=== PATIENT | female | born 1950 | race Caucasian/White ===

== ENCOUNTER 2021-10-01 10:40 | Inpatient (IN) ==
[2021-09-26 17:26] LABS: Basophils # (Auto) 0.07 K/mcL (0.00-0.30); Basophils % (Auto) 0.8 % (0.0-2.0); Eosinophils % (Auto) 5.5 % (0.0-7.0); Hematocrit 41.2 % (34.1-44.9); Hemoglobin 12.9 g/dL (11.2-15.7); Lymphocytes # (Auto) 2.47 K/mcL (1.50-4.80); Mean Corpuscular HGB Conc 31.3 g/dL (31.0-36.0); Mean Platelet Volume 11.7 fL (7.4-10.4); Monocytes # (Auto) 0.58 K/mcL (0.10-0.90); Monocytes % (Auto) 6.3 % (1.0-12.0); Neutrophils % (Auto) 60.4 % (38.0-78.0); Platelet Count 261 K/mcL (140-440); RBC 4.29 M/mcL (3.59-5.38); Red Cell Distribution Width 12.9 % (11.5-14.5); WBC 9.2 K/mcL (4.5-11.0)
[2021-09-26 17:40] LABS: Estimated Average Glucose(eAG) 180 mg/dL; Hemoglobin A1C 7.9 % Hgb (4.0-6.0)
[2021-09-26 17:45] LABS: INR 0.9 (0.9-1.1); Prothrombin Time 12.8 sec (11.9-14.5)
[2021-09-26 18:15] LABS: Appearance,Urine TURBID (Clear); Bacteria,Urine FEW /hpf (0); Bilirubin,Urine Negative (Negative); Color,Urine AMBER; Culture Indicated,Urine yes; Glucose,Urine (UA) Negative (Negative); Ketones,Urine Negative (Negative); Leukocyte Esterase,Urine 250 /uL (Negative); Nitrate,Urine Negative (Negative); Protein,Urine 100 mg/dL (Negative); Specific Gravity,Urine 1.029 (1.000-1.035); Urine Blood 0.03 mg/dL (Negative); Urine Hyaline Cast 9 /lph (0-2); Urine RBC 59 /hpf (0-3); Urine Squamous Epithelial Cell 1 /hpf (0-4); Urine WBC > 182 /hpf (0-4); Urobilinogen,Urine Negative
[2021-09-26 18:58] LABS: ALT/SGPT 41 U/L (<40); AST/SGOT 41 U/L (<32); Albumin 4.6 gm/dL (3.2-5.2); Albumin/Globulin Ratio 1.5 (1.0-2.3); Alkaline Phosphatase 85 U/L (39-117); Bilirubin,Total 0.2 mg/dL (0.1-1.0); Blood Urea Nitrogen 29 mg/dL (8-23); Calcium 9.2 mg/dL (8.6-10.4); Carbon Dioxide 23 mmol/L (22-30); Chloride 102 mmol/L (96-108); Glomerular Filtration Rate 42; Glucose 123 mg/dL (70-105)
--- NOTE | 2021-09-27 16:49 | EKG ---
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
[~2021-10-01 10:40] MED LIST: GABAPENTIN 400 MG CAPSULE PO SCH; ceFAZolin 2 GM in DEXTROSE 5% IN WATER 50 ML IV SCH; oxyCODONE 10 MG TAB.ER.12H PO SCH
[2021-10-01] MEDS ORDERED: PHENYLephrine 1 MG/10 ML SYRINGE (ANEST) ONE (16:28)
[2021-10-01] MEDS ORDERED: PROPOFOL 200 MG/20 ML VIAL IV ONE (16:28)
[2021-10-01] MEDS ORDERED: KETAMINE 50 MG/ML Syringe (ANEST) IV ONE (16:28)
[2021-10-01] MEDS ORDERED: ONDANSETRON 4 MG/2 ML VIAL ONE (16:28)
[2021-10-01] MEDS ORDERED: TRANEXAMIC ACID 1,000 MG/10 ML VIAL ONE ×2 (16:28→18:45)
[2021-10-01] MEDS ORDERED: VASOPRESSIN 20 UNIT/ML VIAL ONE (16:28)
[2021-10-01] MEDS ORDERED: ePHEDrine 50 MG/5 ML SYRINGE (ANEST) IV ONE (16:28)
[2021-10-01] MEDS ORDERED: LIDOCAINE HCL/PF 100 MG/5 ML SYRINGE IV ONE (16:28)
[2021-10-01] MEDS ORDERED: DEXAMETHASONE 10 MG/ML VIAL ONE (16:28)
[2021-10-01] MEDS ORDERED: GLYCOPYRROLATE 0.2 MG/ML VIAL IV ONE (16:28)
[2021-10-01] MEDS ORDERED: MAGNESIUM SULFATE 2 GM/50 ML BAG IV ONE (16:28)
[2021-10-01] MEDS ORDERED: ROPIVACAINE HCL/PF 20 ML VIAL IJ ONE (16:28)
[2021-10-01] MEDS ORDERED: ACETAMINOPHEN 1,000 MG/100 ML BAG IV ONE (17:44)
[2021-10-01] MEDS ORDERED: IPRATROPIUM/ALBUTEROL 3 ML AMPUL.NEB NEB PRN (17:44)
[2021-10-01] MEDS ORDERED: ePHEDrine 50 MG/ML AMPUL IV PRN (17:44)
[2021-10-01] MEDS ORDERED: fentaNYL 100 MCG/2 ML VIAL IV PRN (17:44)
[2021-10-01] MEDS ORDERED: METHOCARBAMOL 1,000 MG/10 ML VIAL IV PRN (17:44)
[2021-10-01] MEDS ORDERED: ONDANSETRON 4 MG/2 ML VIAL IV PRN ×2 (17:44→17:59)
[2021-10-01] MEDS ORDERED: LACTATED RINGERS 1,000 ML IV SCH (17:45)
[2021-10-01] MEDS ORDERED: POLYETHYLENE GLYCOL 3350 17 GM PACKET PO PRN (17:59)
[2021-10-01] MEDS ORDERED: DEXTROSE 31 GM ORAL.SUSP PO PRN (17:59)
[2021-10-01] MEDS ORDERED: BISACODYL 10 MG SUPP.RECT PR PRN (17:59)
[2021-10-01] MEDS ORDERED: TRANEXAMIC ACID 1,000 MG/10 ML VIAL IV ONE (17:59)
[2021-10-01] MEDS ORDERED: MAGNESIUM HYDROXIDE 30 ML ORAL.SUSP PO PRN (17:59)
[2021-10-01] MEDS ORDERED: DEXTROSE 50% 50 ML VIAL IV PRN (17:59)
[2021-10-01] MEDS ORDERED: FLEETS ADULT ENEMA PR PRN (17:59)
[2021-10-01] MEDS ORDERED: BENZOCAINE/MENTHOL 1 LOZENGE PO PRN (17:59)
[2021-10-01] MEDS ORDERED: KETOROLAC 15 MG/ML VIAL IV PRN (17:59)
[2021-10-01] MEDS ORDERED: HYDROmorphone 1 MG/ML SYRINGE IV PRN (17:59)
[2021-10-01] MEDS ORDERED: 0.9 % SODIUM CHLORIDE 1,000 ML IV SCH (18:00)
--- NOTE | 2021-10-01 18:00 | Brief Operative Note ---
Brief Operative Note Date of procedure: 10/01/21 Pre-op diagnosis: Right hip severe osteoarthritis Post-op diagnosis: same Procedure: Right robotic assisted total hip arthroplasty Grafts/Implants: Yes ([place] Accolade size 3 127 deg femoral stem, +7.5 36 delta head, 48 cup, ) Anesthesia: spinal and GLMA Findings: severe arthritis Complications: none Surgeon: Missael Saucedo Furnace Brazer: Klever Webb Estimated blood loss (cc): 200 Specimens Removed/Pathology: none sent Condition: stable Disposition: PACU
--- NOTE | 2021-10-01 18:57 | XRay Report ---
INDICATION: Post-op Total Hip TECHNIQUE: AP pelvis. AP and crosstable lateral right hip COMPARISON: None. FINDINGS: Status post right total hip arthroplasty. Normal anatomic alignment demonstrated. Pelvis is negative. No fracture. No lytic lesion. There is degenerative joint disease in the left hip. IMPRESSION: Status post right total hip arthroplasty. Interpreted and Authenticated by: Nguyễn Lopez 10/01/21
[2021-10-01] MEDS ORDERED: BISMUTH SUBSALICYLATE 15 ML ORAL.SUSP PO PRN (19:32)
[2021-10-01] MEDS: 0.9 % SODIUM CHLORIDE 10 ML SYRINGE IV SCH ×2 (20:03→21:45)
[2021-10-01] MEDS ORDERED: SENNOSIDES 1 TABLET PO SCH (21:00)
[2021-10-01] MEDS ORDERED: ASPIRIN 325 MG ENTERIC COATED TABLET PO SCH (21:00)
[2021-10-01] MEDS ORDERED: SIMVASTATIN 10 MG TABLET PO SCH (21:00)
[2021-10-01] MEDS ORDERED: MELATONIN 3 MG TABLET PO SCH (21:00)
[2021-10-01] MEDS ORDERED: NORTRIPTYLINE 25 MG CAPSULE PO SCH (21:00)
[2021-10-01] MEDS ORDERED: CARBIDOPA/LEVODOPA 25/100 TABLET PO SCH (21:00)
[2021-10-01] MEDS: LITHIUM CARBONATE 150 MG CAPSULE PO SCH (21:24)
[2021-10-01] MEDS: QUEtiapine 100 MG TABLET PO SCH (21:25)
[2021-10-01] MEDS: DOCUSATE SODIUM 100 MG CAPSULE PO SCH (21:29)
[2021-10-01] MEDS: GABAPENTIN 400 MG CAPSULE PO SCH (21:29)
[2021-10-01] MEDS: INSULIN LISPRO 1 UNIT/0.01 ML UNIT SQ SCH (21:44)
[2021-10-01] MEDS: oxyCODONE/APAP 5/325MG TABLET PO PRN (22:19)
[2021-10-02] MEDS: ceFAZolin 1 GM VIAL IV SCH ×2 (02:15→07:32)
[2021-10-02] MEDS: oxyCODONE/APAP 5/325MG TABLET PO PRN ×3 (02:31→10:10)
[2021-10-02] MEDS: 0.9 % SODIUM CHLORIDE 10 ML SYRINGE IV SCH (06:09)
[2021-10-02] MEDS: INSULIN LISPRO 1 UNIT/0.01 ML UNIT SQ SCH (07:33)
--- NOTE | 2021-10-02 07:47 | Discharge Summary ---
Discharge Provider Provider Patient information: Note initiated : 10/02/21 at 7:46 am Service Date, if different from initiated Date: [] Patient: Suzanna Garza 71 y/o F admitted on 10/01/21 for Right Total Hip Arthroplasty Aureliano. Chief Complaint: [] Date of admission: 10/01/21 18:57 Discharge date: 10/02/21 Primary care physician: Davis Pickard COURSE Hospital Course Hospital course: Pt was admitted for a R CESILIA. Pt underwent the procedure on the day of admission and discharged to home post-op day 1. ASA for DVT prophylaxis. f/u in 2 weeks. Discharge diagnosis: R hip OA Time Spent with Patient Time attestation: Total time spent providing and/or coordinating discharge services: Physical Examination Narrative Exam Narrative: Bandages c/d/i nvi-distal Exam Clean and dry: Yes Weight bearing status: as tolerated Discharge Instructions - CESILIA Patient Instructions Total Hip Protocol: Follow activity instructions as provided by Physical Therapy. Discharge Plan Patient/Caregiver Discharge Instructions Activity: as per physical therapy and increase activity as tolerated Prescriptions: New hydrocodone-acetaminophen 10-325 mg tablet 1 - 2 tab PO Q4-6HP PRN (Reason: pain) Qty: 60 0RF aspirin 325 mg capsule 325 mg PO QDAY Qty: 7 0RF Continued metformin 500 mg tablet 500 mg PO QDAY 0RF clopidogrel 75 MG tablet 75 mg PO DAILY Qty: 14 0RF simvastatin 10 MG tablet 10 mg PO HS 0RF multivitamin Tablet 1 tab PO QDAY 0RF ibuprofen 200 mg Capsule 600 mg PO Q6H PRN (Reason: Pain) 0RF potassium chloride 10 mEq Tablet Extended Release 10 meq PO QDAY 0RF nortriptyline 25 mg Capsule 25 mg PO QHS 0RF furosemide 20 mg Tablet 20 mg PO QDAY 0RF metoprolol succinate 25 mg Tablet Extended Release 24 Hr 25 mg PO QDAY 0RF carbidopa-levodopa 25-100 mg Tablet 2 tab PO QHS 0RF bismuth subsalicylate 525 mg/15 mL Suspension 1,050 mg PO PRN PRN (Reason: Gastric Reflux) 0RF Rx Instructions: do not exceed 8 doses in a 24 hour period cholecalciferol (vitamin D3) [Vitamin D3] 25 mcg (1,000 unit) Capsule 25 mcg PO QDAY 0RF melatonin 10 mg Tablet 10 mg PO HS 0RF lithium carbonate 300 mg Capsule 600 mg PO BID 0RF quetiapine 25 mg tablet 100 mg PO BID 0RF Label Comments: also one tablet at night gabapentin 600 mg tablet 1,200 mg PO BID 0RF Label Comments: then takes 2 more tabs PRN at HS Discontinued ferrous sulfate 325 mg (65 mg iron) Tablet 325 mg PO BID 0RF Other Ambulatory Orders: Physical Therapy at Discharge - CESILIA (Routine) Location: None Selected Ordered By: Klever Webb Walker (ONCE) Location: None Selected Ordered By: Klever Webb Follow Up Plan Follow up with: Klever Webb PA-C [Physician [employer] [facility]] - Patient Disposition: Home, Self-Care Rehab Potential: Good Overall status at discharge: patient is progressing back to baseline Discharge Orders: Discharge Order (Routine); Ordered 10/02/21 Ordered By: Klever Webb Pending Pending Pending: Resuscitation Status Resuscitate (Full Code) Diet Consistent Carbohydrate Diet Start WedOct 01 1802 Aspirin (Aspirin 325 Mg Enteric Coated Tablet) 81 mg PO BID [facility] Last Admin: 10/01/21 21:28 Dose: Not Given Documented by: LEXII Carbidopa/Levodopa (Carbidopa/Levodopa 25/100 Tablet) 2 tab PO QHS [facility] Last Admin: 10/01/21 21:24 Dose: 2 tab Documented by: LEXII Cefazolin Sodium (Cefazolin 1 Gm Vial) 2 gm IV Q8H [facility] Stop: 10/02/21 08:01 Last Admin: 10/02/21 07:32 Dose: 2 gm Documented by: [email or web address] Admin: 10/02/21 02:15 Dose: 2 gm Documented by: LEXII Diagnostic Test (Pha) (Accu-Chek 1 Each Strip) 1 each FS ACHS [facility] Last Admin: 10/02/21 07:32 Dose: 1 each Documented by: [email or web address] Admin: 10/01/21 21:36 Dose: 1 each Documented by: BRYNNSCHERRY Docusate Sodium (Docusate Sodium 100 Mg Capsule) 100 mg PO BID [facility] Last Admin: 10/01/21 21:29 Dose: Not Given Documented by: BRYNNSCHERRY Gabapentin (Gabapentin 400 Mg Capsule) 1,200 mg PO BID [facility] Last Admin: 10/01/21 21:29 Dose: Not Given Documented by: LEXII Insulin Human Lispro (Insulin Lispro 1 Unit/0.01 Ml Unit) 0 unit SQ ACHS [facility]; Protocol Last Admin: 10/02/21 07:33 Dose: 4 unit Documented by: [email or web address] Admin: 10/01/21 21:44 Dose: 6 unit Documented by: LEXII [place] Carbonate ([place] Carbonate 150 Mg Capsule) 600 mg PO BID [facility] Last Admin: 10/01/21 21:24 Dose: 600 mg Documented by: LEXII Melatonin (Melatonin 3 Mg Tablet) 9 mg PO [facility] Last Admin: 10/01/21 21:24 Dose: 9 mg Documented by: LEXII Nortriptyline HCl (Nortriptyline 25 Mg Capsule) [facility] Last Admin: 10/01/21 21:24 Dose: 25 mg Documented by: LEXII Oxycodone/Acetaminophen (Oxycodone/Apap 5/325mg Tablet) 1 - 2 tab PO Q4HP PRN; Protocol PRN Reason: Per Pain Protocol Last Admin: 10/02/21 06:09 Dose: 1 tab Documented by: Admin: 10/02/21 02:31 Dose: 1 tab Documented by: Admin: 10/01/21 22:19 Dose: 1 tab Documented by: LEXII Quetiapine Fumarate (Quetiapine 100 Mg Tablet) 100 mg PO BID [facility] Last Admin: 10/01/21 21:25 Dose: 100 mg Documented by: LEXII Senna (Sennosides 1 Tablet) 2 tab PO [facility] Last Admin: 10/01/21 21:29 Dose: Not Given Documented by: LEXII Simvastatin (Simvastatin 10 Mg Tablet) 10 mg PO [facility] Last Admin: 10/01/21 21:24 Dose: 10 mg Documented by: LEXII Sodium Chloride (0.9 % Sodium Chloride 10 Ml Syringe) 10 ml IV Q8 [facility] Last Admin: 10/02/21 06:09 Dose: 10 ml Documented by: Admin: 10/01/21 21:45 Dose: 10 ml Documented by: LEXII Shift Summary 10/02/21 05:15 Shift Summary by Jose Luis De Souza Pt A/Ox4. Returned from surgery 1900 last night. Tolerating PO well. x1 tab of Percocet administered x2 for 4/10 pain, last administered @0230. Pt ambulated x1 this AM. Expected to D/c home today. VSS on RA. Will update at bedside Initialized on 10/02/21 05:15 - END OF NOTE
[2021-10-02] MEDS ORDERED: ASPIRIN 325 MG ENTERIC COATED TABLET PO ONE (08:00)
--- NOTE | 2021-10-02 08:49 | Operative Note ---
DATE OF OPERATION: 10/01/2021 PREOPERATIVE DIAGNOSIS: Right hip severe osteoarthritis. POSTOPERATIVE DIAGNOSIS: Right hip severe osteoarthritis. PROCEDURE PERFORMED: Right robotic-assisted direct anterior total hip arthroplasty placing a Devyn Accolade II 127-degree size 3 femoral stem; a +7.5, 36 mm delta ceramic head ball on a 48 Trident II cup with a neutral X3 polyethylene insert. SURGEON: Missael Saucedo MD SENIOR BI ARCHITECT: Luis E Webb PA-C. This providers expertise and technical skill were required throughout the case. The SYL assisted with preoperative coordination, intraoperative retraction, wound closure, and dressing and splint application, as well as postoperative documentation and care coordination. ANESTHESIA: Spinal plus general. DRAINS: None. SPECIMEN: Femoral head, which was discarded ESTIMATED BLOOD LOSS: 200 mL. COMPLICATIONS: None. POSTOPERATIVE CONDITION: Stable. INDICATIONS FOR SURGERY: This is a 71-year-old female who has had longstanding, progressive worsening, severe right hip pain. Radiographs showed severe mgld-lw-lpix osteoarthritis. FINDINGS AT SURGERY: Severe hlgm-jc-jvcf osteoarthritis with very large osteophytes. Post implantation showed good component position with equalization of leg length and offset compared to the nonoperative side. PROCEDURE IN DETAIL: The patient was seen preoperatively and informed consent had been obtained after discussion of risks and benefits of surgery. Risks including, but not limited to, bleeding, possibly requiring transfusion; infection, possibly requiring implant removal and prolonged IV antibiotics; injury to nerves, blood vessels, and other surrounding structures, at particular risk the lateral femoral cutaneous nerve resulting in lateral thigh numbness; anesthetic risks; incomplete or no resolution of symptoms; leg length discrepancy with likely leg lengthening; dislocation; fracture; DVT and pulmonary embolus risks; and the possibility of needing further revision joint surgery. The patient understood these risks and wished to proceed. The correct operative site was marked in preoperative holding. The patient received spinal anesthesia. The patient was then taken to the operating room, and general anesthesia induced. The patient was carefully positioned on the [place] table and the operative and nonoperative hips were prepped and draped in normal sterile fashion. Timeout was performed verifying patient name, operative site, and plan. On the nonoperative side, all skin surfaces were covered with Ioban. The nonoperative iliac crest was then palpated and two stab incisions made over it. We then placed the guide in the two holes and then drilled and placed the two pins into the iliac crest. Once this was completed, we then placed a stab incision in between these two and a third pin was passed using the guide with the central sleeve. This sleeve was carefully pushed all the way down to bone and then the guide was tightened against all three pins. We had also placed an EKG pad on the tibial tubercle that could be palpated through the drapes of the operative side. We then used the blue probe to do our check of the guide and the tibial tubercle. We then proceeded on the operative side with a standard anterior approach incision with a scalpel through skin and subcutaneous tissue. We did use a scalpel through skin and subcutaneous tissue. Hemostasis was obtained with Bovie cautery. We continued careful blunt dissection down onto the tensor fascia and then this was undermined circumferentially. IrriSept was irrigated and then the ring retractor placed. The tensor fascia was incised carefully not to injure the lateral femoral cutaneous nerve. Careful blunt dissection was then taken medial to the muscle belly. Blunt Cobra retractors were placed on the superior and inferior neck and then circumflex vessels were coagulated and cut and vastus fascia was split distally. A T-shaped capsular incision was made along the intertrochanteric line and then perpendicular to this up the femoral neck to the acetabular rim and then the triangles of the capsule were excised with Bovie. Retractors were placed intracapsular and capsule release was taken down towards the lesser trochanter and out towards greater. A corkscrew was placed in the femoral head and then we used the blue probe to make our starting point in the saddle on the superior neck and then measured to the medial neck according to our preoperative planning for our neck cut with the [employer] (now [employer]) software. We then made a Bovie curtis and made our femoral neck cut with oscillating tip saw. The femoral head was removed and the acetabulum was exposed. The labrum was excised circumferentially. Bone wax was placed on the cut surface to help with bleeding. We also used Bovie to remove soft tissue from the floor of the acetabulum. Once we had good exposure of the acetabulum, we then proceeded with our blue probe to do our mapping of the acetabulum. Once this was completed, we then popped the bubbles with the probe verifying good registration. Once registration was complete, I then irrigated the acetabulum with IrriSept and then the reamer was placed into the acetabulum and the reamer was then fastened into the robotic arm. Using the robotic assistance, we then reamed the acetabulum until all the green had been removed in a one-step ream technique. The reamer was then removed. The appropriate acetabular cup was then opened. We irrigated with IrriSept once more, after a minute I then pulse lavaged copiously with saline. The cup was then positioned into the acetabulum and then again attached to the arm, and a mallet was then used to impact the cup until it seated within 1 mm of fully seating according to the robot. We then removed the impactor arm. A center hole cover was placed and inspection was done for any osteophytes with a curved osteotome was used to remove them. The liner was then opened and carefully aligned and impacted. We used a tonsil clamp to carefully verify that this was fully seated circumferentially. Traction was then released from the leg, was externally rotated, and capsule was released around the medial and posterior neck and then with the traction off the leg, it was extended and adducted. We released the capsule out towards the greater trochanter and once we had adequate proximal femur exposure a box osteotome was used to gain canal entry. We did view our neck cut view on the Aureliano to start our proximal version. An awl was then used to identify canal trajectory. [place] and rasp were used to lateralize. We then began sequentially broaching up to the size templated which seated right about our neck cut. I did use a calcar planer to ensure bone resection was flush and then the preplanned neck trial and head ball were placed and the hip was reduced. We then checked with our blue probe our leg lengths. We did place a femoral checkpoint just prior to our neck cut osteotomy. We placed a probe in the femoral checkpoint and then also the tibial tubercle checkpoint. This had our limb positioned very similar to the nonoperative side as preoperatively planned. So, we went ahead and redislocated. Trial stem was removed. Definitive stem was opened. We irrigated the femoral canal with IrriSept, after waiting a minute, we pulse lavaged copiously with saline. The stem was then impacted and it seated at the appropriate level, so the head ball was also opened. The stem was carefully cleaned and dried and the head ball was impacted. The hip was reduced and a final verification was done again with the blue probe verifying again our preoperative plan. We then removed the femoral checkpoint. We irrigated the joint with IrriSept, after a minute, we pulse lavaged copiously with saline. The tensor fascia was then closed with two running #1 Vicryls, one running proximal and one running distal. The ring retractor was removed. We irrigated with more IrriSept, after a minute more pulse lavage, and then fat was tacked to fascia with Vicryl and then 2-0 Monocryl was used for subcutaneous and en for skin closure. A sterile dressing was applied. The patient was then awakened and transferred to the [facility] and to the recovery room in stable condition. BJB:cait Job ID: [id number] Doc ID: [id number] Missael Saucedo MD
[2021-10-02] MEDS ORDERED: VITAMIN D3 25 MCG TABLET PO SCH (09:00)
[2021-10-02] MEDS ORDERED: metFORMIN 500 MG TABLET PO SCH (09:00)
[2021-10-02] MEDS ORDERED: POTASSIUM CHLORIDE 10 MEQ TABLET PO SCH (09:00)
[2021-10-02] MEDS ORDERED: MULTIVIT,THER IRON,CA,FA & MIN 1 TABLET PO SCH (09:00)
[2021-10-02] MEDS ORDERED: METOPROLOL SUCCINATE 25 MG TAB.XL.24H PO SCH (09:00)
[2021-10-02] MEDS ORDERED: FUROSEMIDE 20 MG TABLET PO SCH (09:00)
[2021-10-02] MEDS: QUEtiapine 100 MG TABLET PO SCH (10:11)
[2021-10-02] MEDS: LITHIUM CARBONATE 150 MG CAPSULE PO SCH (10:11)
[2021-10-02] MEDS: GABAPENTIN 400 MG CAPSULE PO SCH (10:12)
[2021-10-02] MEDS: DOCUSATE SODIUM 100 MG CAPSULE PO SCH (10:12)
== END 2021-10-02 10:20 | disposition home or self-care (01) | DRG 470 ==
LOC: SUR 10:40 → MEDSUR 18:57
PROVIDERS: ADMIT Orthopaedic Surgery; ATTEND Orthopaedic Surgery

== ENCOUNTER 2021-10-03 16:00 | Inpatient (IN) ==
[2021-10-03] MEDS ORDERED: 0.9 % SODIUM CHLORIDE 1,000 ML IV ONE (16:30)
[2021-10-03] MEDS ORDERED: NALOXONE HCL 0.4 MG/ML VIAL IV ONE (16:37)
[2021-10-03 16:42] LABS: POC Blood Urea Nitrogen 28 mg/dL (6-20); POC CO2 25 mmol/L (22-30); POC Calcium, Ionized 1.18 mmEq/L (1.16-1.32); POC Chloride 102 mEq/L (96-108); POC Creatinine 1.2 mg/dL (0.6-1.2); POC Glucose, Random 137 mg/dL (70-105); POC Hematocrit 34 % (36-48); POC Potassium 4.5 mEql/L (3.3-5.1); POC Sodium 137 mEq/L (133-145)
[2021-10-03 17:13] LABS: Hematocrit 35.9 % (34.1-44.9); Hemoglobin 11.6 g/dL (11.2-15.7); Mean Cell Volume 98.4 fL (80.0-100.0); Mean Corpuscular HGB Conc 32.3 g/dL (31.0-36.0); Mean Platelet Volume 11.7 fL (7.4-10.4); Platelet Count 229 K/mcL (140-440); RBC 3.65 M/mcL (3.59-5.38); Red Cell Distribution Width 13.4 % (11.5-14.5); WBC 13.8 K/mcL (4.5-11.0)
--- NOTE | 2021-10-03 17:47 | Emergency Department Note ---
HPI <Amaya Cullen PA-C - Last Filed: 10/03/21 19:46> General Chief complaint: Weakness Stated complaint: weakness Time Seen by Provider: 10/03/21 16:07 Source: patient and EMS Mode of arrival: ambulatory History of Present Illness HPI Narrative: This is a 71-year-old female who is postop right robotic assisted hip replacement with Dr. Saucedo on 10/01/2021 who presents today with her for somnolence, weakness and inability to transfer, and increasing dyskinesia. The patient is on multiple antipsychotics for bipolar, including lithium carbonate and Seroquel. Her states that she also takes carbidopa levodopa, but cannot recall for what reason she is on this. She initially discharged home from the hospital and was tolerating ambulating and transferring without issue. She has become gradually weaker and more somnolent. Her states he only gave her one tab of 10 mg hydrocodone/t ylenol this morning for narcotic intake. Of note patient had a Klebsiella UTI diagnosed on 09/26/2021 for which she just started taking ciprofloxacin this morning. Related Data Home Medications Medication Instructions Recorded Confirmed gabapentin 600 mg tablet 1,200 mg PO BID tab 11/28/18 10/01/21 quetiapine 25 mg tablet 100 mg PO BID tab 11/28/18 10/01/21 simvastatin 10 mg tablet 10 mg PO HS 12/03/18 10/01/21 metformin 500 mg tablet 500 mg PO QDAY tab 09/20/21 10/01/21 bismuth subsalicylate 525 mg/15 mL 1,050 mg PO PRN PRN 09/26/21 10/01/21 oral suspension carbidopa 25 mg-levodopa 100 mg 2 tab PO QHS 09/26/21 10/01/21 tablet cholecalciferol (vitamin D3) 25 25 mcg PO QDAY 09/26/21 10/01/21 mcg (1,000 unit) capsule (Vitamin D3) furosemide 20 mg tablet 20 mg PO QDAY 09/26/21 10/01/21 ibuprofen 200 mg capsule 600 mg PO Q6H PRN 09/26/21 10/01/21 lithium carbonate 300 mg capsule 600 mg PO BID 09/26/21 10/01/21 melatonin 10 mg tablet 10 mg PO HS 09/26/21 10/01/21 metoprolol succinate 25 mg 25 mg PO QDAY 09/26/21 10/01/21 tablet,extended release 24 hr multivitamin 1 tab PO QDAY 09/26/21 10/01/21 nortriptyline 25 mg capsule 25 mg PO QHS 09/26/21 10/01/21 potassium chloride 10 mEq 10 meq PO QDAY 09/26/21 10/01/21 tablet,extended release Previous Rx's Medication Instructions Recorded clopidogrel 75 mg tablet 75 mg PO DAILY #14 tab 10/20/16 aspirin 325 mg capsule 325 mg PO QDAY #7 cap 10/02/21 hydrocodone 10 mg-acetaminophen 1 - 2 tab PO Q4-6HP PRN #60 tab 10/02/21 325 mg tablet Allergies Allergy/AdvReac Type Severity Reaction Status Date / Time codeine Allergy Mild Rash Verified 09/30/21 15:07 Sulfa (Sulfonamide Allergy Mild Rash Verified 09/30/21 15:07 Antibiotics) divalproex sodium AdvReac Intermediate Hallucinati Verified 09/30/21 15:07 [From Depakote] ng metoclopramide [From Reglan] AdvReac Intermediate Hallucinati Verified 09/30/21 15:07 ng Review of Systems <Amaya Cullen PA-C - Last Filed: 10/03/21 19:46> ROS ROS Narrative: Narrative: All systems ED: reviewed and negative except as stated. PFSH <Amaya Cullen PA-C - Last Filed: 10/03/21 19:46> Narrative Patient History Narrative: Narrative: Medical/Surgical/Family History All Active Problems (Updated 10/03/21 @ 19:30 by Amaya Cullen PA-C) Weakness (Acute) Self-care deficit (Acute) Ambulatory dysfunction (Acute) S/P total hip arthroplasty (Acute) Sciatica (Acute) Strain of lumbar region (Acute) Lower extremity edema (Acute) Congestive heart failure (Acute) Impaired swallowing associated with throat pain (Acute) Breath shortness (Acute) Edema, peripheral (Acute) Vaginitis (Acute) Intertrigo (Acute) Chronic anticoagulation (Chronic) Benzodiazepine (tranquilizer) overdose (Acute) Chronic insomnia (Acute) Abnormal resting ECG findings (Chronic) Obesity (Chronic) Coronary artery disease (Chronic) Bipolar disorder (Chronic) Old cerebrovascular accident without late effect (Chronic) Hypertension (Chronic) Hyperlipidemia (Chronic) Lumbar spinal stenosis (Chronic) GERD (gastroesophageal reflux disease) (Chronic) Recurrent falls (Chronic) Neuropathy (Chronic) Back pain (Chronic) Restless leg syndrome (Chronic) Insomnia (Chronic) Edema (Chronic) Arthritis (Chronic) Eczema (Chronic) Migraines (Chronic) Depression (Chronic) Urinary incontinence (Chronic) Anxiety disorder (Chronic) Dizziness (Chronic) Medical History (Updated 10/03/21 @ 19:30 by Amaya Cullen PA-C) Abnormal resting ECG findings inverted T waves precordial and inferior; strain pattern; LVH probable 2017, , 04-01-19 Altered mental status Anxiety disorder Arthritis Back pain chronic low back Bipolar disorder Buttock pain Chronic anticoagulation eliquis Coronary artery disease Cystitis Depression Dizziness DVT prophylaxis Eczema Edema Encounter for medication refill Fall GERD (gastroesophageal reflux disease) Hyperlipidemia Hypertension Insomnia Lumbar spinal stenosis Migraine Migraines Multiple contusions Neck pain, acute Neuropathy Obesity Old cerebrovascular accident without late effect Recurrent falls Recurrent UTI Restless leg syndrome Sinus problem TIA (transient ischemic attack) Urinary incontinence Urinary tract infection Surgical History (Updated 10/03/21 @ 19:30 by Amaya Cullen PA-C) History of breast surgery History of delivery History of shoulder surgery History of tonsillectomy S/P hysterectomy Family History Father Prostate tumor Rheumatoid arthritis Cancer Mother Heart attack Mitral valve regurgitation Hypertension Daughter Diabetes Sister Hypertension Other Stroke Social History Smoking Status: Former smoker Alcohol Intake Frequency: holiday/special occasion only Substance Use: does not use Exam <Amaya Cullen PA-C - Last Filed: 10/03/21 19:46> Narrative Narrative: General: AO x2 to self and location. NAD, somnolent but arousable. Very weak with twitching/jerking movements with initiation of movement. HEENT: PERRL, EOMI, normocephalic. Moist mucous membranes. Normal facies and normal dentition. Chest: Symmetric, no pain to palpation Respiratory: Crackles noted in the right lower lobe. No respiratory distress. Unlabored breathing. Heart: Regular rate and rhythm, no murmurs/clicks/rubs. Abdomen: Non-tender, Non distended, normal bowel tones. No organomegaly. Extremities: Warm and well perfused. No edema. DP 2+ bilaterally. No venous stasis. Right lower extremity with right hip incision dressing C/D/I. No significant hematoma formation. Postsurgical ecchymosis noted. Left hip incisi on with dressing C/D/I, no hematoma formation. Neuro: No focal deficits. Cranial nerves II-XII grossly normal. Skin: Warm dry, no rashes or lesions, no cyanosis. Psych: Somnolent but arousable Heme/Lymph: No abnormal bruising Course <Amaya Cullen PA-C - Last Filed: 10/03/21 19:46> Course Course Narrative: 71-year-old female presents for weakness, ambulatory dysfunction, and somnolence status post right robotic assisted hip replacement with Dr. Saucedo on 10/01/2021. Reevaluation(s) Reevaluation #1: Patient is a high fall risk and not a safe discharge home. I do have the clinical professor of social work reach out to skilled facilities, but these are not available tonight and likely not available over the weekends for admission. We will obtain basic lab work and plan for observation admission for placement if everything looks okay. Reevaluation #2: Patient was trialed on 0. 2 mg of Narcan to see if this improves her somnolence. She is slightly more alert on reexamination. CBC with mild leukocytosis of 13,800, probably stress response from surgery. UA is bland and culture is not indicated; however, in the setting of recent UTI this is sent for culture. Vital Signs Vital signs: Vital Signs Temperature 98 F 10/03/21 16:02 Pulse Rate 92 H 10/03/21 16:02 Respiratory Rate 16 10/03/21 16:02 Blood Pressure 123/65 10/03/21 16:02 Pulse Oximetry (%) 94 10/03/21 16:02 Temperature 97.4 F 10/04/21 06:52 Pulse Rate 89 10/04/21 06:52 Respiratory Rate 16 10/04/21 06:52 Blood Pressure 152/88 10/04/21 06:52 Pulse Oximetry (%) 96 10/04/21 06:52 MDM <Amaya Cullen PA-C - Last Filed: 10/03/21 19:46> MDM Narrative Medical decision making narrative: Postoperative weakness and self-care deficits Patient status post right robotic assisted total hip arthroplasty, POD #2 with postoperative weakness and self-care deficits and unsafe disposition to home. Laboratory values are essentially unremarkable. UA appears clear. Patient will require PT OT reevaluation for safe disposition. I discussed the case with the hospitalist who has agreed for admission, likely observation with reevaluation in the morning. Lab Data Result diagrams: 10/04/21 05:36 10/04/21 05:36 Labs: Lab Results 10/03/21 10/03/21 10/03/21 Range/Units 16:30 16:30 18:03 WBC 13.8 H (4.5-11.0) K/mcL RBC 3.65 (3.59-5.38) M/mcL Hgb 11.6 (11.2-15.7) g/dL Hct 35.9 (34.1-44.9) % POC Hct 34 L (36-48) % MCV 98.4 (80.0-100.0) fL MCH 31.8 (26.0-34.0) pg MCHC 32.3 (31.0-36.0) g/dL RDW 13.4 (11.5-14.5) % Plt Count 229 (140-440) K/mcL MPV 11.7 H (7.4-10.4) fL Seg Neutrophils % 81 H (38-78) % Band Neutrophils % 1 (0-10) % Lymphocytes % 14 L (15-49) % Monocytes % (Manual) 2 (1-12) % Eosinophils % (Manual) 2 (0-7) % Platelet Estimate Normal (Normal) RBC Morphology Normal (Normal) POC Sodium 137 (133-145) mEq/L Sodium (133-145) mmol/L POC Potassium 4.5 (3.3-5.1) mEql/L Potassium (3.3-5.1) mmol/L POC Chloride 102 (96-108) mEq/L Chloride (96-108) mmol/L Carbon Dioxide (22-30) mmol/L POC Total CO2 25 (22-30) mmol/L Anion Gap (8.0-16.0) POC BUN 28 H (6-20) mg/dL BUN (8-23) mg/dL Creatinine (0.6-1.1) mg/dL POC Creatinine 1.2 (0.6-1.2) mg/dL GFR Calculation Glucose (70-105) mg/dL POC Glucose 137 H (70-105) mg/dL Uric Acid (2.5-8.0) mg/dL Calcium (8.6-10.4) mg/dL POC WB Ioniz Calcium 1.18 (1.16-1.32) mmEq/L Phosphorus (2.5-4.5) mg/dL Magnesium (1.6-2.5) mg/dL Total Bilirubin (0.1-1.0) mg/dL Direct Bilirubin (0-0.3) mg/dL GGT (5-36) U/L AST (<32) U/L ALT (<40) U/L Alkaline Phosphatase (39-117) U/L Lactate Dehydrogenase (135-225) U/L Total Protein (5.9-8.4) gm/dL Albumin (3.2-5.2) gm/dL Globulin (2.2-3.7) gm/dL Albumin/Globulin Ratio (1.0-2.3) Triglycerides (<150) mg/dL Urine Color Yellow Urine Appearance Clear (Clear) Urine pH 6.0 (5.0-9.0) Ur Specific [place] 1.020 (1.000-1.035) Urine Protein Negative (Negative) mg/dL Urine Glucose (UA) Negative (Negative) mg/dL Urine Ketones 5 A (Negative) mg/dL Urine Occult Blood Negative (Negative) mg/dL Urine Nitrate Negative (Negative) Urine Bilirubin Negative (Negative) mg/dL Urine Urobilinogen Negative mg/dL Ur Leukocyte Esterase Negative (Negative) /uL Ur Culture Indicated? No 10/03/21 Range/Units 19:52 WBC (4.5-11.0) K/mcL RBC (3.59-5.38) M/mcL Hgb (11.2-15.7) g/dL Hct (34.1-44.9) % POC Hct (36-48) % MCV (80.0-100.0) fL MCH (26.0-34.0) pg MCHC (31.0-36.0) g/dL RDW (11.5-14.5) % Plt Count (140-440) K/mcL MPV (7.4-10.4) fL Seg Neutrophils % (38-78) % Band Neutrophils % (0-10) % Lymphocytes % (15-49) % Monocytes % (Manual) (1-12) % Eosinophils % (Manual) (0-7) % Platelet Estimate (Normal) RBC Morphology (Normal) POC Sodium (133-145) mEq/L Sodium 137 (133-145) mmol/L POC Potassium (3.3-5.1) mEql/L Potassium 4.7 (3.3-5.1) mmol/L POC Chloride (96-108) mEq/L Chloride 102 (96-108) mmol/L Carbon Dioxide 21 L (22-30) mmol/L POC Total CO2 (22-30) mmol/L Anion Gap 14.0 (8.0-16.0) POC BUN (6-20) mg/dL BUN 18 (8-23) mg/dL Creatinine 1.1 (0.6-1.1) mg/dL POC Creatinine (0.6-1.2) mg/dL GFR Calculation 51 Glucose 152 H (70-105) mg/dL POC Glucose (70-105) mg/dL Uric Acid 7.9 (2.5-8.0) mg/dL Calcium 9.0 (8.6-10.4) mg/dL POC WB Ioniz Calcium (1.16-1.32) mmEq/L Phosphorus 2.7 (2.5-4.5) mg/dL Magnesium 2.4 (1.6-2.5) mg/dL Total Bilirubin 0.3 (0.1-1.0) mg/dL Direct Bilirubin < 0.2 (0-0.3) mg/dL GGT 25 (5-36) U/L AST 30 (<32) U/L ALT 8 (<40) U/L Alkaline Phosphatase 67 (39-117) U/L Lactate Dehydrogenase 203 (135-225) U/L Total Protein 6.8 (5.9-8.4) gm/dL Albumin 3.9 (3.2-5.2) gm/dL Globulin 2.9 (2.2-3.7) gm/dL Albumin/Globulin Ratio 1.3 (1.0-2.3) Triglycerides 138 (<150) mg/dL Urine Color Urine Appearance (Clear) Urine pH (5.0-9.0) Ur Specific [place] (1.000-1.035) Urine Protein (Negative) mg/dL Urine Glucose (UA) (Negative) mg/dL Urine Ketones (Negative) mg/dL Urine Occult Blood (Negative) mg/dL Urine Nitrate (Negative) Urine Bilirubin (Negative) mg/dL Urine Urobilinogen mg/dL Ur Leukocyte Esterase (Negative) /uL Ur Culture Indicated? ED POC Tests ED POC Tests: BOBBI - SARS Antigen Negative Discharge Plan Patient/Caregiver Discharge Instructions Pt seen by ATTORNEY LAWYER/PA only: Yes Clinical Impression: Weakness, Self-care deficit, Ambulatory dysfunction, S/P total hip arthroplasty Patient Disposition: Xfer As Outpt/Obs ([facility]) Condition: Fair Discharge Date/Time: 10/03/21 21:25
[2021-10-03 18:08] LABS: Band Neutrophils % 1 % (0-10); Eosinophils % (Manual) 2 % (0-7); Lymphocytes % 14 % (15-49); Monocytes % (Manual) 2 % (1-12); Platelet Estimate NORMAL (Normal); RBC Morphology NORMAL (Normal); Segmented Neutrophils % 81 % (38-78)
[2021-10-03 19:05] LABS: Appearance,Urine CLEAR (Clear); Bilirubin,Urine Negative (Negative); Color,Urine YELLOW; Culture Indicated,Urine No; Glucose,Urine (UA) Negative (Negative); Ketones,Urine 5 mg/dL (Negative); Leukocyte Esterase,Urine Negative /uL (Negative); Nitrate,Urine Negative (Negative); Protein,Urine Negative (Negative); Urine Blood Negative (Negative); Urobilinogen,Urine Negative
--- NOTE | 2021-10-03 20:06 | Internal Med History&Physical ---
HPI History of Present Illness Patient information: Note initiated : 10/03/21 at 8:03 pm Service Date, if different from initiated Date: [] Patient: Suzanna Garza a 71 y/o F admitted on for weakness. Chief Complaint: [] History of present illness: Ms. Garza is a 71 year old F Who presents the ED with generalized weakness some somnolence and dyskinesia. She has a history of dyskinesia but it was worse today. She was discharged yesterday after a right hip replacement. Per her she seemed to be doing all right yesterday did have some dyskinesia in the evening and was feeling okay when she went to bed. However when she woke up she was much weaker and restless as she had some disorientation and more dyskinesia. Per she has taken her medications. Of note looking at old charts she does have history of restless leg syndrome wh ich I believe is the reason she is on Sinemet. Dyskinesia probably from her Sinemet. She is on antipsychotic but is Seroquel with lowest probability of causing dyskinesia. Review of Systems: Pertinent positives as above. Plus headache . denies fever/chills/nausea/vomiting/chest or abdominal pain/cough/dyspnea/diarrhea. Otherwise see above. PFSH PFSH All Active Problems (Updated 10/03/21 @ 19:30 by Amaya Cullen PA-C) Weakness (Acute) Self-care deficit (Acute) Ambulatory dysfunction (Acute) S/P total hip arthroplasty (Acute) Sciatica (Acute) Strain of lumbar region (Acute) Lower extremity edema (Acute) Congestive heart failure (Acute) Impaired swallowing associated with throat pain (Acute) Breath shortness (Acute) Edema, peripheral (Acute) Vaginitis (Acute) Intertrigo (Acute) Chronic anticoagulation (Chronic) Benzodiazepine (tranquilizer) overdose (Acute) Chronic insomnia (Acute) Abnormal resting ECG findings (Chronic) Obesity (Chronic) Coronary artery disease (Chronic) Bipolar disorder (Chronic) Old cerebrovascular accident without late effect (Chronic) Hypertension (Chronic) Hyperlipidemia (Chronic) Lumbar spinal stenosis (Chronic) GERD (gastroesophageal reflux disease) (Chronic) Recurrent falls (Chronic) Neuropathy (Chronic) Back pain (Chronic) Restless leg syndrome (Chronic) Insomnia (Chronic) Edema (Chronic) Arthritis (Chronic) Eczema (Chronic) Migraines (Chronic) Depression (Chronic) Urinary incontinence (Chronic) Anxiety disorder (Chronic) Dizziness (Chronic) Medical History (Updated 10/03/21 @ 19:30 by Amaya Cullen PA-C) Abnormal resting ECG findings inverted T waves precordial and inferior; strain pattern; LVH probable 2017, , 04-01-19 Altered mental status Anxiety disorder Arthritis Back pain chronic low back Bipolar disorder Buttock pain Chronic anticoagulation eliquis Coronary artery disease Cystitis Depression Dizziness DVT prophylaxis Eczema Edema Encounter for medication refill Fall GERD (gastroesophageal reflux disease) Hyperlipidemia Hypertension Insomnia Lumbar spinal stenosis Migraine Migraines Multiple contusions Neck pain, acute Neuropathy Obesity Old cerebrovascular accident without late effect Recurrent falls Recurrent UTI Restless leg syndrome Sinus problem TIA (transient ischemic attack) Urinary incontinence Urinary tract infection Surgical History (Updated 10/03/21 @ 19:30 by Amaya Cullen PA-C) History of breast surgery History of delivery History of shoulder surgery History of tonsillectomy S/P hysterectomy Family History Father Prostate tumor Rheumatoid arthritis Cancer Mother Heart attack Mitral valve regurgitation Hypertension Daughter Diabetes Sister Hypertension Other Stroke Social History (Updated 11/03/19 @ 13:09 by Roslyn Abernathy DO) alcohol intake frequency: holiday/special occasion only substance use type: does not use MEDS/ALLERGIES Home Medications and Allergies Home Medications Medication Instructions Recorded Confirmed Type clopidogrel 75 mg tablet 75 mg PO DAILY #14 tab 10/20/16 10/01/21 Rx gabapentin 600 mg tablet 1,200 mg PO BID tab 11/28/18 10/01/21 History quetiapine 25 mg tablet 100 mg PO BID tab 11/28/18 10/01/21 History simvastatin 10 mg tablet 10 mg PO HS 12/03/18 10/01/21 History metformin 500 mg tablet 500 mg PO QDAY tab 09/20/21 10/01/21 History bismuth subsalicylate 525 mg/15 mL 1,050 mg PO PRN PRN 09/26/21 10/01/21 History oral suspension carbidopa 25 mg-levodopa 100 mg 2 tab PO QHS 09/26/21 10/01/21 History tablet cholecalciferol (vitamin D3) 25 25 mcg PO QDAY 09/26/21 10/01/21 History mcg (1,000 unit) capsule (Vitamin D3) furosemide 20 mg tablet 20 mg PO QDAY 09/26/21 10/01/21 History ibuprofen 200 mg capsule 600 mg PO Q6H PRN 09/26/21 10/01/21 History lithium carbonate 300 mg capsule 600 mg PO BID 09/26/21 10/01/21 History melatonin 10 mg tablet 10 mg PO HS 09/26/21 10/01/21 History metoprolol succinate 25 mg 25 mg PO QDAY 09/26/21 10/01/21 History tablet,extended release 24 hr multivitamin 1 tab PO QDAY 09/26/21 10/01/21 History nortriptyline 25 mg capsule 25 mg PO QHS 09/26/21 10/01/21 History potassium chloride 10 mEq 10 meq PO QDAY 09/26/21 10/01/21 History tablet,extended release aspirin 325 mg capsule 325 mg PO QDAY #7 cap 10/02/21 Rx hydrocodone 10 mg-acetaminophen 1 - 2 tab PO Q4-6HP PRN #60 tab 10/02/21 Rx 325 mg tablet Allergies Allergy/AdvReac Type Severity Reaction Status Date / Time codeine Allergy Mild Rash Verified 09/30/21 15:07 Sulfa (Sulfonamide Allergy Mild Rash Verified 09/30/21 15:07 Antibiotics) divalproex sodium AdvReac Intermediate Hallucinati Verified 09/30/21 15:07 [From Depakote] ng metoclopramide [From Reglan] AdvReac Intermediate Hallucinati Verified 09/30/21 15:07 ng EXAM Constitutional Vitals: Temp Pulse Resp BP Pulse Ox 98 F 92 H 16 138/66 94 10/03/21 16:02 10/03/21 16:02 10/03/21 16:02 10/03/21 19:46 10/03/21 16:02 Exam: General: Alert, Awake, No acute Distress,, obese Eyes/N/T: EOMI, PERRL, dryMM Head/Neck: neck supple, normocephalic atraumatic CV: RRR, No murmurs, normal s1/s2 Pulm: Clear b/l, no wheezing/rhonchi/rales Abd: soft, nontender, +BS x4 Ext: no clubbing/cyanosis/edema Neuro: Awake and answers questions appropriately although she is slow to answer some questions and occasionally I need to repeat myself. Moves all extremities and follows commands Skin: warm/dry DATA Data Completed and Pending Labs: Labs from last 24 hours 10/03/21 10/03/21 10/03/21 19:52 18:03 16:30 WBC 13.8 H RBC 3.65 Hgb 11.6 Hct 35.9 POC Hct MCV 98.4 MCH 31.8 MCHC 32.3 RDW 13.4 Plt Count 229 MPV 11.7 H Seg Neutrophils % 81 H Band Neutrophils % 1 Lymphocytes % 14 L Monocytes % (Manual) 2 Eosinophils % (Manual) 2 Platelet Estimate Normal RBC Morphology Normal POC Sodium Sodium Pending POC Potassium Potassium Pending POC Chloride Chloride Pending Carbon Dioxide Pending POC Total CO2 Anion Gap Pending POC BUN BUN Pending Creatinine Pending POC Creatinine GFR Calculation Pending Glucose Pending POC Glucose Uric Acid Pending Calcium Pending POC WB Ioniz Calcium Phosphorus Pending Magnesium Pending Total Bilirubin Pending Direct Bilirubin Pending GGT Pending AST Pending ALT Pending Alkaline Phosphatase Pending Lactate Dehydrogenase Pending Total Protein Pending Albumin Pending Globulin Pending Albumin/Globulin Ratio Pending Triglycerides Pending Urine Color Yellow Urine Appearance Clear Urine pH 6.0 Ur Specific [place] 1.020 Urine Protein Negative Urine Glucose (UA) Negative Urine Ketones 5 A Urine Occult Blood Negative Urine Nitrate Negative Urine Bilirubin Negative Urine Urobilinogen Negative Ur Leukocyte Esterase Negative Ur Culture Indicated? No 10/03/21 16:30 WBC RBC Hgb Hct POC Hct 34 L MCV MCH MCHC RDW Plt Count MPV Seg Neutrophils % Band Neutrophils % Lymphocytes % Monocytes % (Manual) Eosinophils % (Manual) Platelet Estimate RBC Morphology POC Sodium 137 Sodium POC Potassium 4.5 Potassium POC Chloride 102 Chloride Carbon Dioxide POC Total CO2 25 Anion Gap POC BUN 28 H BUN Creatinine POC Creatinine 1.2 GFR Calculation Glucose POC Glucose 137 H Uric Acid Calcium POC WB Ioniz Calcium 1.18 Phosphorus Magnesium Total Bilirubin Direct Bilirubin GGT AST ALT Alkaline Phosphatase Lactate Dehydrogenase Total Protein Albumin Globulin Albumin/Globulin Ratio Triglycerides Urine Color Urine Appearance Urine pH Ur Specific [place] Urine Protein Urine Glucose (UA) Urine Ketones Urine Occult Blood Urine Nitrate Urine Bilirubin Urine Urobilinogen Ur Leukocyte Esterase Ur Culture Indicated? 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
[2021-10-03] MEDS ORDERED: ONDANSETRON 4 MG/2 ML VIAL IV PRN (21:26)
[2021-10-03] MEDS ORDERED: MAGNESIUM SULFATE 2 GM/50 ML BAG IV PRN (21:26)
[2021-10-03] MEDS ORDERED: IPRATROPIUM/ALBUTEROL 3 ML AMPUL.NEB NEB PRN (21:26)
[2021-10-03] MEDS ORDERED: AMANTADINE HCL 100 MG CAPSULE PO ONE (21:26)
[2021-10-03] MEDS ORDERED: POTASSIUM CHLORIDE 20 MEQ TABLET PO PRN ×2 (21:26)
[2021-10-03] MEDS ORDERED: LORazepam 2 MG/ML VIAL IV PRN (21:26)
[2021-10-03] MEDS ORDERED: POLYETHYLENE GLYCOL 3350 17 GM PACKET PO PRN (21:26)
[2021-10-03] MEDS ORDERED: HYDROcodone/APAP 5/325MG TABLET PO PRN ×2 (21:26→21:53)
[2021-10-03] MEDS ORDERED: SENNOSIDES 1 TABLET PO PRN (21:26)
[2021-10-03] MEDS ORDERED: DEXTROSE 31 GM ORAL.SUSP PO PRN (21:26)
[2021-10-03] MEDS ORDERED: POTASSIUM CHLORIDE 40 MEQ in DEXTROSE 5% IN WATER 500 ML IV PRN (21:26)
[2021-10-03] MEDS ORDERED: DEXTROSE 50% 50 ML VIAL IV PRN (21:26)
[2021-10-03] MEDS ORDERED: LABETALOL 5 MG/ML ML IV PRN (21:26)
[2021-10-03] MEDS ORDERED: ACETAMINOPHEN 650 MG/65 ML BAG IV PRN (21:56)
[2021-10-03] MEDS ORDERED: LORazepam 2 MG/ML VIAL IV ONE (22:03)
[2021-10-03] MEDS ORDERED: ACETAMINOPHEN 1,000 MG/100 ML BAG IV ONE (22:05)
[2021-10-03] MEDS: 0.9 % SODIUM CHLORIDE 10 ML SYRINGE IV SCH (22:13)
[2021-10-03] MEDS: 0.9 % SODIUM CHLORIDE 1,000 ML IV SCH (23:00)
[2021-10-03] MEDS: INSULIN LISPRO 1 UNIT/0.01 ML UNIT SQ SCH (23:00)
[2021-10-03] MEDS: DOCUSATE SODIUM 100 MG CAPSULE PO SCH (23:06)
[2021-10-03 23:16] LABS: ALT/SGPT 8 U/L (<40); AST/SGOT 30 U/L (<32); Albumin 3.9 gm/dL (3.2-5.2); Albumin/Globulin Ratio 1.3 (1.0-2.3); Alkaline Phosphatase 67 U/L (39-117); Bilirubin,Direct < 0.2 mg/dL (0-0.3); Bilirubin,Total 0.3 mg/dL (0.1-1.0); Blood Urea Nitrogen 18 mg/dL (8-23); Carbon Dioxide 21 mmol/L (22-30); Chloride 102 mmol/L (96-108); Globulin 2.9 gm/dL (2.2-3.7); Glomerular Filtration Rate 51; Glucose 152 mg/dL (70-105); Lactate Dehydrogenase 203 U/L (135-225); Phosphorous 2.7 mg/dL (2.5-4.5); Triglycerides 138 mg/dL (<150); Uric Acid 7.9 mg/dL (2.5-8.0)
[2021-10-04] MEDS: 0.9 % SODIUM CHLORIDE 1,000 ML IV SCH (01:08)
[2021-10-04] MEDS: morphine 2 MG/ML VIAL IV PRN (01:18)
[2021-10-04 06:58] LABS: Hematocrit 34.7 % (34.1-44.9); Hemoglobin 11.3 g/dL (11.2-15.7); Mean Cell Volume 97.5 fL (80.0-100.0); Mean Corpuscular HGB Conc 32.6 g/dL (31.0-36.0); Mean Platelet Volume 11.8 fL (7.4-10.4); Platelet Count 208 K/mcL (140-440); RBC 3.56 M/mcL (3.59-5.38); Red Cell Distribution Width 13.3 % (11.5-14.5); WBC 11.7 K/mcL (4.5-11.0)
[2021-10-04] MEDS: 0.9 % SODIUM CHLORIDE 10 ML SYRINGE IV SCH ×3 (07:05→21:18)
[2021-10-04 07:47] LABS: ALT/SGPT 15 U/L (<40); AST/SGOT 31 U/L (<32); Albumin 3.7 gm/dL (3.2-5.2); Albumin/Globulin Ratio 1.3 (1.0-2.3); Alkaline Phosphatase 68 U/L (39-117); Bilirubin,Direct < 0.2 mg/dL (0-0.3); Bilirubin,Total 0.5 mg/dL (0.1-1.0); Blood Urea Nitrogen 13 mg/dL (8-23); Calcium 8.8 mg/dL (8.6-10.4); Carbon Dioxide 23 mmol/L (22-30); Chloride 102 mmol/L (96-108); Globulin 2.9 gm/dL (2.2-3.7); Glomerular Filtration Rate 65; Glucose 159 mg/dL (70-105); Lactate Dehydrogenase 215 U/L (135-225); Phosphorous 2.4 mg/dL (2.5-4.5); Triglycerides 134 mg/dL (<150); Uric Acid 6.8 mg/dL (2.5-8.0)
--- NOTE | 2021-10-04 07:51 | Internal Med Progress Note ---
SUBJECTIVE Subjective Patient information: Note initiated : 10/04/21 at 7:42 am Service Date, if different from initiated Date: [] Patient: Suzanna Garza a 71 y/o F admitted on 10/03/21 for weakness. Chief Complaint: [] Interval history: History of present illness: Ms. Garza is a 71 year old F Who presents the ED with generalized weakness some somnolence and dyskinesia. She has a history of dyskinesia but it was worse today. She was discharged yesterday after a right hip replacement. Per her she seemed to be doing all right yesterday did have some dyskinesia in the evening and was feeling okay when she went to bed. However when she woke up she was much weaker and restless as she had some disorientation and more dyskinesia. Per she has taken her medications. Of note looking at old charts she does have history of restless leg syndrome which I believe is the reason she is on Sinemet. Dyskinesia probably from her Sinemet. She is on antipsychotic but is Seroquel with lowest probability of causing dyskinesia. 10/04 Patient pulled pulled IV catheter out earlier this morning. No other overnight events. Patient ambulated in room with nursing this morning. Has a little bit of disorientation as far as year and president. brain imaging pending. Urinalysis and chest x-ray unremarkable. She did have a fever yesterday evening none since. Review of Systems: denies headache/fever/chills/nausea/vomiting/chest or abdominal pain/cough/dyspnea/diarrhea. Otherwise see above. Constitutional Vitals: Vital Signs Temp Pulse Resp BP Pulse Ox 97.4 F 89 16 152/88 96 10/04/21 06:52 10/04/21 06:52 10/04/21 06:52 10/04/21 06:52 10/04/21 06:52 Period Temp Pulse Resp BP Sys/Kwon Pulse Ox Last 24 Hr 97.4 F-101.1 F 88-93 16-24 108-152/62-88 93-96 Intake and Output 10/03/21 10/04/21 10/04/21 21:59 05:59 13:59 Intake Total 425 Output Total 800 Balance -375 Weight 97.976 kg Intake & Output: Intake & Output 10/03/21 10/04/21 10/04/21 21:59 05:59 13:59 Intake Total 425 Output Total 800 Balance -375 Weight 97.976 kg Intake: IV 225 Sodium Chloride 0.9% 1,000 ml @ 160 75 mls/hr IV .[id number] [facility] Rx#: [id number] Oral 200 Output: Urine Catheter Amount 800 Other: Urine Appearance Clear Clear Uretheral (Doherty) Clear Urine Color Bright Yellow Bright Yellow Uretheral (Doherty) Bright Yellow Exam: General: Awake, No acute Distress,, obese Eyes/N/T: EOMI, Head/Neck: neck supple, CV: RRR, No murmurs, Pulm: Clear b/l, no wheezing/rhonchi/rales Abd: soft, nontender, +BS x4 Ext: no clubbing/cyanosis/edema Neuro: Awake and answers questions appropriately although slowly, disoriented to time and President but knew name and birthdate. Moves all extremities and follows commands Skin: warm/dry OBJ DATA Labs CBC & Chem 7: 10/04/21 05:36 10/04/21 05:36 Labs: Abnormal Lab Results 10/04/21 10/03/21 10/03/21 05:36 19:52 18:03 WBC 11.7 H RBC 3.56 L POC Hct MPV 11.8 H Seg Neutrophils % Lymphocytes % Carbon Dioxide 21 L POC BUN Glucose 152 H POC Glucose Urine Ketones 5 A 10/03/21 10/03/21 16:30 16:30 WBC 13.8 H RBC POC Hct 34 L MPV 11.7 H Seg Neutrophils % 81 H Lymphocytes % 14 L Carbon Dioxide POC BUN 28 H Glucose POC Glucose 137 H Urine Ketones Meds: Medications Acetaminophen (Acetaminophen 325 Mg Tablet) 650 mg PO Q6HP PRN; Protocol PRN Reason: Per Pain Protocol/Fever > 101 Hydrocodone Bitart/Acetaminophen (Hydrocodone/Apap 5/325mg Tablet) 1 tab PO Q4- 6HP PRN; Protocol PRN Reason: Per Pain Protocol Albuterol/Ipratropium (Ipratropium/Albuterol 3 Ml Ampul.Neb) 3 ml NEB Q4HP PRN PRN Reason: Shortness Of Breath Dextrose (Dextrose 50% 50 Ml Vial) 0 ml IV UD PRN PRN Reason: Hypoglycemia Diagnostic Test (Pha) (Accu-Chek 1 Each Strip) 1 each FS ACHS [facility] Last Admin: 10/03/21 22:59 Dose: 1 each Documented by: Docusate Sodium (Docusate Sodium 100 Mg Capsule) 100 mg PO BID [facility] Last Admin: 10/03/21 23:06 Dose: Not Given Documented by: Enoxaparin Sodium (Enoxaparin 40 Mg/0.4 Ml Syringe) 40 mg SQ DAILY [facility] Glucose (Dextrose 31 Gm Oral.Susp) 15 gm PO PRN PRN PRN Reason: Hypoglycemia Potassium Chloride 40 meq/ (Dextrose) 520 mls @ 130 mls/hr IV UD PRN PRN Reason: Potassium < 3 Magnesium Sulfate (Magnesium Sulfate) 2 gm in 50 mls @ 50 mls/hr IV UD PRN PRN Reason: Magnesium </= 1.6 Sodium Chloride (Sodium Chloride 0.9%) 1,000 mls @ 75 mls/hr IV .[id number] [facility] Stop: 10/04/21 10:45 Last Admin: 10/04/21 01:08 Dose: 75 mls/hr Documented by: Acetaminophen (Ofirmev) 650 mg in 65 mls @ 130 mls/hr IV Q6HP PRN; Protocol PRN Reason: PAIN/FEVER > 101 Last Infusion: 10/03/21 23:02 Dose: Infused Documented by: Insulin Human Lispro (Insulin Lispro 1 Unit/0.01 Ml Unit) 0 unit SQ [facility]; Protocol Last Admin: 10/03/21 23:00 Dose: Not Given Documented by: Labetalol HCl (Labetalol 5 Mg/Ml Ml) 0 mg IV Q2HP PRN PRN Reason: Hypertension Lorazepam (Lorazepam 2 Mg/Ml Vial) 0.5 mg IV Q4-6HP PRN PRN Reason: dyskinesia/restless leg Morphine Sulfate (Morphine 2 Mg/Ml Vial) 1 - 3 mg IV Q3HP PRN; Protocol PRN Reason: Per Pain Protocol Last Admin: 10/04/21 01:18 Dose: 3 mg Documented by: Ondansetron HCl (Ondansetron 4 Mg/2 Ml Vial) 4 mg IV Q4HP PRN PRN Reason: Nausea And Vomiting Polyethylene Glycol (Polyethylene Glycol 3350 17 Gm Packet) 17 gm PO DAILYP PRN PRN Reason: Constipation Potassium Chloride (Potassium Chloride 20 Meq Tablet) 40 meq PO UD PRN PRN Reason: Potssium is 3-3.5 Potassium Chloride (Potassium Chloride 20 Meq Tablet) 40 meq PO UD PRN PRN Reason: Potassium < 3 Senna (Sennosides 1 Tablet) 2 tab PO DAILYP PRN PRN Reason: Constipation Sodium Chloride (0.9 % Sodium Chloride 10 Ml Syringe) 10 ml IV Q8 [facility] Last Admin: 10/04/21 07:05 Dose: Not Given Documented by: A/P Narrative A/P Narrative: A: *Encephalopathy: ?post-op anesthesia + likely polypharmacy(?med mismanagement) + dehydration + ?psych *Generalized weakness/deconditioning postop hip replacement *Dyskinesia: Suspect secondary to Sinemet *RLS: likely why she is on sinemet, may need a tapering off with alternative med added *Bipolar d/o: on seroquel/lithium *volume depletion: *mild leukocytosis: no bandemia, brief fever. 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 s/p amantadine -prn ativan -monitor for infection, pending BC's -CM for placement -SSI, metformin -cont BB, hold lasix for now -cont ASA/statin -Home medication reconciliation -ppx: lovenox Time Spent With Patient Time: Total time spent is greater than 50% in coordination of care (as documented) at patient's floor/unit and/or counseling patient: QUALITY VTE Deep Vein Thrombosis/Pulmonary Embolism Present on Admission: No
[2021-10-04] MEDS: DOCUSATE SODIUM 100 MG CAPSULE PO SCH ×2 (08:24→21:17)
[2021-10-04] MEDS: INSULIN LISPRO 1 UNIT/0.01 ML UNIT SQ SCH ×4 (08:24→21:16)
[2021-10-04] MEDS: ENOXAPARIN 40 MG/0.4 ML SYRINGE SQ SCH (08:32)
[2021-10-04 08:42] LABS: Lymphocytes % 20 % (15-49); Monocytes % (Manual) 6 % (1-12); Platelet Estimate NORMAL (Normal); RBC Morphology NORMAL (Normal); Segmented Neutrophils % 74 % (38-78)
--- NOTE | 2021-10-04 08:43 | XRay Report ---
INDICATION: fever TECHNIQUE: AP portable upright chest x-ray COMPARISON: None FINDINGS: Lungs:Lungs are negative. No focal pulmonary parenchymal infiltrate or mass Heart, vascular:No significant cardiomegaly. Pulmonary vascularity is normal. No pulmonary edema or pulmonary congestion Mediastinum, masoud:No mediastinal widening. No hilar mass Pleura:No pleural fluid. No pleural-based mass or calcification Skeletal:Negative. IMPRESSION: 1. Negative AP chest x-ray 2. No significant interval change since 06/08/2021 Interpreted and Authenticated by: Nguyễn Lopez 10/04/21
[2021-10-04] MEDS ORDERED: HYDROcodone/APAP 10/325MG TABLET PO PRN (11:25)
--- NOTE | 2021-10-04 12:46 | Magnetic Resonance Report ---
INDICATION: confusion, fever COMPARISON: Previous CT scan dated 08/23/2020 TECHNIQUE: Sagittal T1 FLAIR images. Axial DWI, T1 FLAIR, T2 FLAIR, T2, GRE. Coronal T2 FSE. FINDINGS: Cerebral hemispheres:No restricted diffusion. No acute infarction. No susceptibility. No hemorrhagic abnormality. There is mild cerebral atrophy with prominent superficial subarachnoid spaces and ventricles. There is encephalomalacia in the right frontal lobe consistent with chronic infarction in the distribution of anterior branches of the right middle cerebral artery. This encephalomalacia is unchanged since previous CT scan dated 08/23/2020. No acute intra-axial abnormality. No localized mass effect. No midline shift. Brain stem and cerebellum:No intra-axial abnormalities. Extra-axial:Normal flow void within vessels at the base of the brain. No subdural or epidural hematoma. No detectable subarachnoid hemorrhage Cavernous sinuses and basilar cisterns are normal. Skull:No calvarial lesions. No lytic lesion. No detectable fracture. Temporal bones:Mastoid sinuses are normal. No fluid or soft tissue intensity within either middle ear. Inner ear structures are normal Orbits, facial soft tissues:Globes are normal. No intraorbital abnormality. Facial soft tissues are negative Paranasal sinuses:Maxillary, frontal, ethmoid sinuses are negative. Sphenoid sinuses are negative. No mucosal thickening. No air-fluid levels. No discrete soft tissue mass IMPRESSION: 1. Encephalomalacia in the distribution of anterior branches of the right middle cerebral artery 2. No acute abnormality. No acute infarction Interpreted and Authenticated by: Nguyễn Lopez 10/04/21
[2021-10-04] MEDS ORDERED: QUEtiapine 25 MG TABLET PO SCH (21:00)
[2021-10-04] MEDS ORDERED: LITHIUM CARBONATE 150 MG CAPSULE PO SCH (21:00)
[2021-10-04] MEDS ORDERED: GABAPENTIN 400 MG CAPSULE PO SCH (21:00)
[2021-10-04] MEDS: CARBIDOPA/LEVODOPA 25/100 TABLET PO SCH (21:17)
[2021-10-04] MEDS: CLOPIDOGREL 75 MG TABLET PO SCH (21:17)
[2021-10-04] MEDS: MELATONIN 3 MG TABLET PO SCH (21:17)
[2021-10-04] MEDS: SIMVASTATIN 10 MG TABLET PO SCH (21:17)
[2021-10-05] MEDS: 0.9 % SODIUM CHLORIDE 10 ML SYRINGE IV SCH ×3 (05:10→20:44)
[2021-10-05 06:22] LABS: Basophils # (Auto) 0.05 K/mcL (0.00-0.30); Basophils % (Auto) 0.5 % (0.0-2.0); Eosinophils # (Auto) 0.27 K/mcL (0.00-0.70); Eosinophils % (Auto) 2.6 % (0.0-7.0); Hematocrit 35.1 % (34.1-44.9); Lymphocytes # (Auto) 2.25 K/mcL (1.50-4.80); Mean Cell Volume 96.4 fL (80.0-100.0); Mean Corpuscular HGB Conc 31.3 g/dL (31.0-36.0); Mean Platelet Volume 11.7 fL (7.4-10.4); Monocytes # (Auto) 0.69 K/mcL (0.10-0.90); Monocytes % (Auto) 6.7 % (1.0-12.0); Neutrophils % (Auto) 68.2 % (38.0-78.0); Platelet Count 232 K/mcL (140-440); RBC 3.64 M/mcL (3.59-5.38); WBC 10.2 K/mcL (4.5-11.0)
[2021-10-05 07:24] LABS: ALT/SGPT 6 U/L (<40); AST/SGOT 31 U/L (<32); Albumin 3.5 gm/dL (3.2-5.2); Albumin/Globulin Ratio 1.1 (1.0-2.3); Alkaline Phosphatase 67 U/L (39-117); Bilirubin,Direct < 0.2 mg/dL (0-0.3); Bilirubin,Total 0.4 mg/dL (0.1-1.0); Blood Urea Nitrogen 13 mg/dL (8-23); Calcium 9.3 mg/dL (8.6-10.4); Carbon Dioxide 22 mmol/L (22-30); Chloride 103 mmol/L (96-108); Globulin 3.1 gm/dL (2.2-3.7); Glomerular Filtration Rate 88; Glucose 124 mg/dL (70-105); Lactate Dehydrogenase 202 U/L (135-225); Phosphorous 2.9 mg/dL (2.5-4.5); Triglycerides 136 mg/dL (<150); Uric Acid 6.8 mg/dL (2.5-8.0)
[2021-10-05] MEDS ORDERED: AMANTADINE HCL 100 MG CAPSULE PO ONE ×2 (07:44→09:48)
--- NOTE | 2021-10-05 07:46 | Internal Med Progress Note ---
SUBJECTIVE Subjective Patient information: Note initiated : 10/05/21 at 7:39 am Service Date, if different from initiated Date: [] Patient: Suzanna Garza a 71 y/o F admitted on 10/03/21 for weakness. Chief Complaint: [] Interval history: History of present illness: Ms. Garza is a 71 year old F Who presents the ED with generalized weakness some somnolence and dyskinesia. She has a history of dyskinesia but it was worse today. She was discharged yesterday after a right hip replacement. Per her she seemed to be doing all right yesterday did have some dyskinesia in the evening and was feeling okay when she went to bed. However when she woke up she was much weaker and restless as she had some disorientation and more dyskinesia. Per she has taken her medications. Of note looking at old charts she does have history of restless leg syndrome which I believe is the reason she is on Sinemet. Dyskinesia probably from her Sinemet. She is on antipsychotic but is Seroquel with lowest probability of causing dyskinesia. 10/04 Patient pulled pulled IV catheter out earlier this morning. No other overnight events. Patient ambulated in room with nursing this morning. Has a little bit of disorientation as far as year and president. brain imaging pending. Urinalysis and chest x-ray unremarkable. She did have a fever yesterday evening none since. 10/05 Patient sitting in chair eating breakfast. Ambulate team to bed with walker. Patient states she had poor sleep ever since surgery. Still a little bit disoriented to time and president but answers little more quickly today seems a bit more clear otherwise. Review of Systems: denies headache/fever/chills/nausea/vomiting/chest or abdominal pain/cough/dyspnea/diarrhea. Otherwise see above. Constitutional Vitals: Vital Signs Temp Pulse Resp BP Pulse Ox 98.8 F 91 H 20 130/75 96 10/05/21 06:59 10/05/21 04:00 10/05/21 06:59 10/05/21 06:59 10/05/21 06:59 Period Temp Pulse Resp BP Sys/Kwon Pulse Ox Last 24 Hr 97.1 F-98.8 F 74-94 16-20 115-147/75-84 93-96 Intake and Output 1210/05/21 10/05/21 21:59 05:59 13:59 Intake Total 120 1000 Output Total 200 575 Balance -200 -455 1000 Weight 93.803 kg Intake & Output: Intake & Output 10/04/21 10/05/21 10/05/21 21:59 05:59 13:59 Intake Total 120 1000 Output Total 200 575 Balance -200 -455 1000 Weight 93.803 kg Intake: IV 1000 Sodium Chloride 0.9% 1,000 ml @ 1000 75 mls/hr IV .[id number] [facility] Rx#: [id number] Oral 120 Output: Urine Catheter Amount 200 575 Other: Urine Appearance Clear Clear Urine Color Bright Yellow Dark Yellow Urine Odor Normal # Unmeasured Emesis 1 Exam: General: Awake, No acute Distress, obese Eyes/N/T: EOMI, Head/Neck: neck supple no nuchal rigidity CV: RRR, No murmurs, Pulm: Clear b/l, no wheezing/rhonchi/rales Abd: soft, nontender, +BS x4 Ext: no clubbing/cyanosis/edema Neuro: Awake and answers questions appropriately and not nearly as slowly as she did previously, oriented to place and name and birthdate but not the year and needed prompting with the President Skin: warm/dry. small area around dressing of incision site with mild erythema but nontender and not indurated - no change. OBJ DATA Labs CBC & Chem 7: 10/05/21 05:08 10/05/21 05:08 Labs: Abnormal Lab Results 10/05/21 10/05/21 10/04/21 05:08 05:08 05:36 WBC RBC Hgb 11.0 L POC Hct MPV 11.7 H Seg Neutrophils % Lymphocytes % Carbon Dioxide POC BUN Glucose 124 H 159 H POC Glucose Phosphorus 2.4 L Urine Ketones 10/04/21 10/03/21 10/03/21 05:36 19:52 18:03 WBC 11.7 H RBC 3.56 L Hgb POC Hct MPV 11.8 H Seg Neutrophils % Lymphocytes % Carbon Dioxide 21 L POC BUN Glucose 152 H POC Glucose Phosphorus Urine Ketones 5 A 10/03/21 10/03/21 16:30 16:30 WBC 13.8 H RBC Hgb POC Hct 34 L MPV 11.7 H Seg Neutrophils % 81 H Lymphocytes % 14 L Carbon Dioxide POC BUN 28 H Glucose POC Glucose 137 H Phosphorus Urine Ketones Meds: Medications Acetaminophen (Acetaminophen 325 Mg Tablet) 650 mg PO Q6HP PRN; Protocol PRN Reason: Per Pain Protocol/Fever > 101 Hydrocodone Bitart/Acetaminophen (Hydrocodone/Apap 10/325mg Tablet) 1 - 2 tab PO Q4-6HP PRN; Protocol PRN Reason: pain Albuterol/Ipratropium (Ipratropium/Albuterol 3 Ml Ampul.Neb) 3 ml NEB Q4HP PRN PRN Reason: Shortness Of Breath Carbidopa/Levodopa (Carbidopa/Levodopa 25/100 Tablet) 1 tab PO QHS [facility] Last Admin: 10/04/21 21:17 Dose: 1 tab Documented by: Clopidogrel Bisulfate (Clopidogrel 75 Mg Tablet) 75 mg PO HS [facility] Last Admin: 10/04/21 21:17 Dose: 75 mg Documented by: Dextrose (Dextrose 50% 50 Ml Vial) 0 ml IV UD PRN PRN Reason: Hypoglycemia Diagnostic Test (Pha) (Accu-Chek 1 Each Strip) 1 each FS ACHS [facility] Last Admin: 10/04/21 21:15 Dose: 1 each Documented by: Docusate Sodium (Docusate Sodium 100 Mg Capsule) 100 mg PO BID [facility] Last Admin: 10/04/21 21:17 Dose: 100 mg Documented by: Enoxaparin Sodium (Enoxaparin 40 Mg/0.4 Ml Syringe) 40 mg SQ DAILY [facility] Last Admin: 10/04/21 08:32 Dose: 40 mg Documented by: Gabapentin (Gabapentin 400 Mg Capsule) 1,200 mg PO BID [facility] Last Admin: 10/04/21 21:16 Dose: 1,200 mg Documented by: Glucose (Dextrose 31 Gm Oral.Susp) 15 gm PO PRN PRN PRN Reason: Hypoglycemia Potassium Chloride 40 meq/ (Dextrose) 520 mls @ 130 mls/hr IV UD PRN PRN Reason: Potassium < 3 Magnesium Sulfate (Magnesium Sulfate) 2 gm in 50 mls @ 50 mls/hr IV UD PRN PRN Reason: Magnesium </= 1.6 Acetaminophen (Ofirmev) 650 mg in 65 mls @ 130 mls/hr IV Q6HP PRN; Protocol PRN Reason: PAIN/FEVER > 101 Last Infusion: 10/03/21 23:02 Dose: Infused Documented by: Insulin Human Lispro (Insulin Lispro 1 Unit/0.01 Ml Unit) 0 unit SQ [facility]; Protocol Last Admin: 10/04/21 21:16 Dose: Not Given Documented by: Labetalol HCl (Labetalol 5 Mg/Ml Ml) 0 mg IV Q2HP PRN PRN Reason: Hypertension [place] Carbonate ([place] Carbonate 150 Mg Capsule) 300 mg PO BID [facility] Last Admin: 10/04/21 21:17 Dose: 300 mg Documented by: Lorazepam (Lorazepam 2 Mg/Ml Vial) 0.5 mg IV Q4-6HP PRN PRN Reason: dyskinesia/restless leg Melatonin (Melatonin 3 Mg Tablet) 9 mg PO [facility] Last Admin: 10/04/21 21:17 Dose: 9 mg Documented by: Metformin HCl (Metformin 500 Mg Tablet) 1,000 mg PO QDAY [facility] Metoprolol Succinate (Metoprolol Succinate 25 Mg Tab.Xl.24h) 25 mg PO QDAY [facility] Morphine Sulfate (Morphine 2 Mg/Ml Vial) 1 - 3 mg IV Q3HP PRN; Protocol PRN Reason: Per Pain Protocol Last Admin: 10/04/21 01:18 Dose: 3 mg Documented by: Ondansetron HCl (Ondansetron 4 Mg/2 Ml Vial) 4 mg IV Q4HP PRN PRN Reason: Nausea And Vomiting Polyethylene Glycol (Polyethylene Glycol 3350 17 Gm Packet) 17 gm PO DAILYP PRN PRN Reason: Constipation Potassium Chloride (Potassium Chloride 20 Meq Tablet) 40 meq PO UD PRN PRN Reason: Potssium is 3-3.5 Potassium Chloride (Potassium Chloride 20 Meq Tablet) 40 meq PO UD PRN PRN Reason: Potassium < 3 Quetiapine Fumarate (Quetiapine 25 Mg Tablet) 75 mg PO [facility] Last Admin: 10/04/21 21:16 Dose: 75 mg Documented by: Senna (Sennosides 1 Tablet) 2 tab PO DAILYP PRN PRN Reason: Constipation Simvastatin (Simvastatin 10 Mg Tablet) 10 mg PO [facility] Last Admin: 10/04/21 21:17 Dose: 10 mg Documented by: Sodium Chloride (0.9 % Sodium Chloride 10 Ml Syringe) 10 ml IV Q8 [facility] Last Admin: 10/05/21 05:10 Dose: 10 ml Documented by: A/P Narrative A/P Narrative: A: *Encephalopathy: ?post-op anesthesia + likely polypharmacy(?med mismanagement) + dehydration + ?psych -MRI unremarkable, no nuchal rigidity -seems to be a bit more clear today *Generalized weakness/deconditioning postop hip replacement *Dyskinesia: Suspect secondary to Sinemet *RLS: likely why she is on sinemet, may need a tapering off with alternative med added *Bipolar d/o: on seroquel/lithium *volume depletion: imrpoved *mild leukocytosis: suspect reactive post-operative -no bandemia, one-time fever shortly after admit. parker neg for covid, UA/CXR unremarkable, BC no growth thus far -resolved without abx *Recent Right Hip arthroplasty (10/01) by Dr. 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 s/p amantadine -hold jovanny for drowsiness, hold seroquel tonight, hold lithium and obtain level -prn ativan -monitor for infection, pending BC's -CM for placement -SSI, metformin -cont BB, hold lasix for now -cont ASA/statin -ppx: lovenox Time Spent With Patient Time: Total time spent is greater than 50% in coordination of care (as documented) at patient's floor/unit and/or counseling patient: QUALITY VTE Deep Vein Thrombosis/Pulmonary Embolism Present on Admission: No
[2021-10-05] MEDS: INSULIN LISPRO 1 UNIT/0.01 ML UNIT SQ SCH ×4 (07:52→20:43)
[2021-10-05 08:59] LABS: Lithium Test 0.6 mmol/L
[2021-10-05 09:09] LABS: Thyroid Stimulating Hormone 3.59 uIU/mL (0.27-5.01)
[2021-10-05] MEDS: morphine 2 MG/ML VIAL IV PRN (09:43)
[2021-10-05] MEDS: ACETAMINOPHEN 325 MG TABLET PO PRN ×2 (09:44→15:47)
[2021-10-05] MEDS: ENOXAPARIN 40 MG/0.4 ML SYRINGE SQ SCH (09:44)
[2021-10-05] MEDS: metFORMIN 500 MG TABLET PO SCH (09:45)
[2021-10-05] MEDS: METOPROLOL SUCCINATE 25 MG TAB.XL.24H PO SCH (09:45)
[2021-10-05] MEDS: DOCUSATE SODIUM 100 MG CAPSULE PO SCH ×2 (09:45→20:44)
[2021-10-05] MEDS: MELATONIN 3 MG TABLET PO SCH (20:43)
[2021-10-05] MEDS: SIMVASTATIN 10 MG TABLET PO SCH (20:43)
[2021-10-05] MEDS: CLOPIDOGREL 75 MG TABLET PO SCH (20:44)
[2021-10-05] MEDS: CARBIDOPA/LEVODOPA 25/100 TABLET PO SCH (20:44)
[2021-10-06] MEDS: 0.9 % SODIUM CHLORIDE 10 ML SYRINGE IV SCH ×3 (05:00→20:37)
[2021-10-06] MEDS: ACETAMINOPHEN 325 MG TABLET PO PRN ×3 (07:18→22:57)
--- NOTE | 2021-10-06 07:20 | Internal Med Progress Note ---
SUBJECTIVE Subjective Patient information: Note initiated : 10/06/21 at 7:16 am Service Date, if different from initiated Date: [] Patient: Suzanna Garza a 71 y/o F admitted on 10/03/21 for weakness. Chief Complaint: [] Interval history: History of present illness: Ms. Garza is a 71 year old F Who presents the ED with generalized weakness some somnolence and dyskinesia. She has a history of dyskinesia but it was worse today. She was discharged yesterday after a right hip replacement. Per her she seemed to be doing all right yesterday did have some dyskinesia in the evening and was feeling okay when she went to bed. However when she woke up she was much weaker and restless as she had some disorientation and more dyskinesia. Per she has taken her medications. Of note looking at old charts she does have history of restless leg syndrome which I believe is the reason she is on Sinemet. Dyskinesia probably from her Sinemet. She is on antipsychotic but is Seroquel with lowest probability of causing dyskinesia. 10/04 Patient pulled pulled IV catheter out earlier this morning. No other overnight events. Patient ambulated in room with nursing this morning. Has a little bit of disorientation as far as year and president. brain imaging pending. Urinalysis and chest x-ray unremarkable. She did have a fever yesterday evening none since. 10/05 Patient sitting in chair eating breakfast. Ambulate team to bed with walker. Patient states she had poor sleep ever since surgery. Still a little bit disoriented to time and president but answers little more quickly today seems a bit more clear otherwise. 10/06 Held Seroquel and gabapentin yesterday. Patient says she slept well and feeling a lot better today. [place] level within normal limits. Vitamin B12 quite low, vitamin D supplementation and pending methylmalonic acid and homocystine. Review of Systems: denies headache/fever/chills/nausea/vomiting/chest or abdominal pain/cough/dyspnea/diarrhea. Otherwise see above. Constitutional Vitals: Vital Signs Temp Pulse Resp BP Pulse Ox 98.3 F 89 16 141/92 98 10/06/21 04:00 10/06/21 04:00 10/06/21 04:00 10/06/21 04:00 10/06/21 04:00 Period Temp Pulse Resp BP Sys/Kwon Pulse Ox Last 24 Hr 97.1 F-98.3 F 81-89 14-18 124-153/76-92 92-98 Intake and Output 10/05/21 10/06/21 10/06/21 21:59 05:59 13:59 Intake Total 560 240 Output Total 300 1000 Balance 260 -760 Weight 92.731 kg Intake & Output: Intake & Output 10/05/21 10/06/21 10/06/21 21:59 05:59 13:59 Intake Total 560 240 Output Total 300 1000 Balance 260 -760 Weight 92.731 kg Intake: Oral 560 240 Output: Urine Catheter Amount 300 1000 Other: Urine Appearance Clear Uretheral (Doherty) Clear Urine Color Dark Yellow Dark Yellow Uretheral (Doherty) Dark Yellow Urine Odor Normal Stool Size Moderate Stool Color Brown Stool Consistency Formed # Bowel Movements 1 Exam: General: Awake, No acute Distress, obese Eyes/N/T: EOMI, Head/Neck: neck supple no nuchal rigidity CV: RRR, No murmurs, Pulm: Clear b/l, no wheezing/rhonchi/rales Abd: soft, nontender, +BS x4 Ext: no clubbing/cyanosis/edema Neuro: Awake and mentally more clear still a little bit slow in answering questions but alert and oriented x4 Skin: warm/dry. small area around dressing of incision site with mild erythema but nontender and not indurated - no change. OBJ DATA Labs CBC & Chem 7: 10/05/21 05:08 10/05/21 05:08 Labs: Abnormal Lab Results 10/05/21 10/05/21 10/04/21 05:08 05:08 05:36 WBC RBC Hgb 11.0 L POC Hct MPV 11.7 H Seg Neutrophils % Lymphocytes % Carbon Dioxide POC BUN Glucose 124 H 159 H POC Glucose Phosphorus 2.4 L Urine Ketones 10/04/21 10/03/21 10/03/21 05:36 19:52 18:03 WBC 11.7 H RBC 3.56 L Hgb POC Hct MPV 11.8 H Seg Neutrophils % Lymphocytes % Carbon Dioxide 21 L POC BUN Glucose 152 H POC Glucose Phosphorus Urine Ketones 5 A 10/03/21 10/03/21 16:30 16:30 WBC 13.8 H RBC Hgb POC Hct 34 L MPV 11.7 H Seg Neutrophils % 81 H Lymphocytes % 14 L Carbon Dioxide POC BUN 28 H Glucose POC Glucose 137 H Phosphorus Urine Ketones Meds: Medications Acetaminophen (Acetaminophen 325 Mg Tablet) 650 mg PO Q6HP PRN; Protocol PRN Reason: Per Pain Protocol/Fever > 101 Last Admin: 10/05/21 15:47 Dose: 650 mg Documented by: Hydrocodone Bitart/Acetaminophen (Hydrocodone/Apap 10/325mg Tablet) 1 - 2 tab PO Q4-6HP PRN; Protocol PRN Reason: pain Albuterol/Ipratropium (Ipratropium/Albuterol 3 Ml Ampul.Neb) 3 ml NEB Q4HP PRN PRN Reason: Shortness Of Breath Carbidopa/Levodopa (Carbidopa/Levodopa 25/100 Tablet) 1 tab PO QHS [facility] Last Admin: 10/05/21 20:44 Dose: 1 tab Documented by: Clopidogrel Bisulfate (Clopidogrel 75 Mg Tablet) 75 mg PO HS [facility] Last Admin: 10/05/21 20:44 Dose: 75 mg Documented by: Dextrose (Dextrose 50% 50 Ml Vial) 0 ml IV UD PRN PRN Reason: Hypoglycemia Diagnostic Test (Pha) (Accu-Chek 1 Each Strip) 1 each FS ACHS [facility] Last Admin: 10/05/21 20:43 Dose: 1 each Documented by: Docusate Sodium (Docusate Sodium 100 Mg Capsule) 100 mg PO BID [facility] Last Admin: 10/05/21 20:44 Dose: 100 mg Documented by: Enoxaparin Sodium (Enoxaparin 40 Mg/0.4 Ml Syringe) 40 mg SQ DAILY [facility] Last Admin: 10/05/21 09:44 Dose: 40 mg Documented by: Glucose (Dextrose 31 Gm Oral.Susp) 15 gm PO PRN PRN PRN Reason: Hypoglycemia Potassium Chloride 40 meq/ (Dextrose) 520 mls @ 130 mls/hr IV UD PRN PRN Reason: Potassium < 3 Magnesium Sulfate (Magnesium Sulfate) 2 gm in 50 mls @ 50 mls/hr IV UD PRN PRN Reason: Magnesium </= 1.6 Acetaminophen (Ofirmev) 650 mg in 65 mls @ 130 mls/hr IV Q6HP PRN; Protocol PRN Reason: PAIN/FEVER > 101 Last Infusion: 10/03/21 23:02 Dose: Infused Documented by: Insulin Human Lispro (Insulin Lispro 1 Unit/0.01 Ml Unit) 0 unit SQ ACHS [facility]; Protocol Last Admin: 10/05/21 20:43 Dose: Not Given Documented by: Labetalol HCl (Labetalol 5 Mg/Ml Ml) 0 mg IV Q2HP PRN PRN Reason: Hypertension Lorazepam (Lorazepam 2 Mg/Ml Vial) 0.5 mg IV Q4-6HP PRN PRN Reason: dyskinesia/restless leg Last Admin: 10/06/21 01:12 Dose: 0.5 mg Documented by: Melatonin (Melatonin 3 Mg Tablet) 9 mg PO HS [facility] Last Admin: 10/05/21 20:43 Dose: 9 mg Documented by: Metformin HCl (Metformin 500 Mg Tablet) 1,000 mg PO QDAY [facility] Last Admin: 10/05/21 09:45 Dose: 1,000 mg Documented by: Metoprolol Succinate (Metoprolol Succinate 25 Mg Tab.Xl.24h) 25 mg PO QDAY [facility] Last Admin: 10/05/21 09:45 Dose: 25 mg Documented by: Morphine Sulfate (Morphine 2 Mg/Ml Vial) 1 - 3 mg IV Q3HP PRN; Protocol PRN Reason: Per Pain Protocol Last Admin: 10/05/21 09:43 Dose: 3 mg Documented by: Ondansetron HCl (Ondansetron 4 Mg/2 Ml Vial) 4 mg IV Q4HP PRN PRN Reason: Nausea And Vomiting Polyethylene Glycol (Polyethylene Glycol 3350 17 Gm Packet) 17 gm PO DAILYP PRN PRN Reason: Constipation Potassium Chloride (Potassium Chloride 20 Meq Tablet) 40 meq PO UD PRN PRN Reason: Potssium is 3-3.5 Potassium Chloride (Potassium Chloride 20 Meq Tablet) 40 meq PO UD PRN PRN Reason: Potassium < 3 Senna (Sennosides 1 Tablet) 2 tab PO DAILYP PRN PRN Reason: Constipation Simvastatin (Simvastatin 10 Mg Tablet) 10 mg PO [facility] Last Admin: 10/05/21 20:43 Dose: 10 mg Documented by: Sodium Chloride (0.9 % Sodium Chloride 10 Ml Syringe) 10 ml IV Q8 [facility] Last Admin: 10/06/21 05:00 Dose: 10 ml Documented by: A/P Narrative A/P Narrative: A: *Encephalopathy: ?post-op anesthesia + likely polypharmacy(?med mismanagement) + dehydration + ?psych -MRI unremarkable, no nuchal rigidity -Improving *Generalized weakness/deconditioning postop hip replacement *Dyskinesia: Suspect secondary to Sinemet *RLS: likely why she is on sinemet, may need a tapering off with alternative med added *Bipolar d/o: on seroquel/lithium *volume depletion: imrpoved *mild leukocytosis: suspect reactive post-operative -no bandemia, one-time fever shortly after admit. parker neg for covid, UA/CXR unremarkable, BC no growth thus far -resolved without abx *Recent Right Hip arthroplasty (10/01) by Dr. 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 s/p amantadine -held jovanny for drowsiness, held seroquel last night, lithium wnl -prn ativan -vit B supp, pending MMA/homocysteine -CM for placement -SSI, metformin -cont BB, hold lasix for now -cont ASA/statin -ppx: lovenox Time Spent With Patient Time: Total time spent is greater than 50% in coordination of care (as documented) at patient's floor/unit and/or counseling patient: QUALITY VTE Deep Vein Thrombosis/Pulmonary Embolism Present on Admission: No
[2021-10-06] MEDS ORDERED: THIAMINE 100 MG/ML VIAL IM ONE (08:18)
[2021-10-06] MEDS: INSULIN LISPRO 1 UNIT/0.01 ML UNIT SQ SCH ×4 (08:27→20:31)
[2021-10-06] MEDS: metFORMIN 500 MG TABLET PO SCH (08:28)
[2021-10-06] MEDS: DOCUSATE SODIUM 100 MG CAPSULE PO SCH ×2 (08:28→20:31)
[2021-10-06] MEDS: ENOXAPARIN 40 MG/0.4 ML SYRINGE SQ SCH (08:29)
[2021-10-06] MEDS: METOPROLOL SUCCINATE 25 MG TAB.XL.24H PO SCH (08:29)
[2021-10-06] MEDS: LITHIUM CARBONATE 150 MG CAPSULE PO SCH ×2 (08:29→20:32)
[2021-10-06] MEDS ORDERED: CYANOCOBALAMIN 1,000 MCG/ML VIAL IM ONE (08:30)
[2021-10-06] MEDS ORDERED: BISMUTH SUBSALICYLATE 15 ML ORAL.SUSP PO PRN (10:55)
[2021-10-06] MEDS: SIMVASTATIN 10 MG TABLET PO SCH (20:31)
[2021-10-06] MEDS: CARBIDOPA/LEVODOPA 25/100 TABLET PO SCH (20:32)
[2021-10-06] MEDS: MELATONIN 3 MG TABLET PO SCH (20:32)
[2021-10-06] MEDS: CLOPIDOGREL 75 MG TABLET PO SCH (20:32)
[2021-10-07] MEDS: 0.9 % SODIUM CHLORIDE 10 ML SYRINGE IV SCH (05:10)
[2021-10-07] MEDS: INSULIN LISPRO 1 UNIT/0.01 ML UNIT SQ SCH ×2 (06:54→11:50)
[2021-10-07] MEDS: ACETAMINOPHEN 325 MG TABLET PO PRN (07:39)
[2021-10-07] MEDS ORDERED: CYANOCOBALAMIN (VITAMIN B-12) 500 MCG TABLET PO SCH (09:00)
[2021-10-07] MEDS ORDERED: THIAMINE 100 MG TABLET PO SCH (09:00)
[2021-10-07] MEDS: METOPROLOL SUCCINATE 25 MG TAB.XL.24H PO SCH (09:10)
[2021-10-07] MEDS: ENOXAPARIN 40 MG/0.4 ML SYRINGE SQ SCH (09:10)
[2021-10-07] MEDS: LITHIUM CARBONATE 150 MG CAPSULE PO SCH (09:10)
[2021-10-07] MEDS: metFORMIN 500 MG TABLET PO SCH (09:11)
[2021-10-07] MEDS: DOCUSATE SODIUM 100 MG CAPSULE PO SCH (09:11)
[2021-10-07 09:27] LABS: Basophils # (Auto) 0.06 K/mcL (0.00-0.30); Basophils % (Auto) 0.6 % (0.0-2.0); Eosinophils % (Auto) 3.1 % (0.0-7.0); Lymphocytes # (Auto) 2.21 K/mcL (1.50-4.80); Lymphocytes % (Auto) 22.6 % (15.5-49.0); Mean Cell Volume 95.7 fL (80.0-100.0); Mean Corpuscular HGB Conc 31.6 g/dL (31.0-36.0); Mean Platelet Volume 11.5 fL (7.4-10.4); Monocytes # (Auto) 0.67 K/mcL (0.10-0.90); Monocytes % (Auto) 6.9 % (1.0-12.0); Neutrophils % (Auto) 66.8 % (38.0-78.0); Platelet Count 345 K/mcL (140-440); RBC 3.97 M/mcL (3.59-5.38); Red Cell Distribution Width 12.9 % (11.5-14.5); WBC 9.8 K/mcL (4.5-11.0)
[2021-10-07 09:44] LABS: ALT/SGPT 13 U/L (<40); AST/SGOT 27 U/L (<32); Albumin 3.7 gm/dL (3.2-5.2); Alkaline Phosphatase 80 U/L (39-117); Bilirubin,Total 0.5 mg/dL (0.1-1.0); Blood Urea Nitrogen 15 mg/dL (8-23); Calcium 9.2 mg/dL (8.6-10.4); Carbon Dioxide 22 mmol/L (22-30); Chloride 105 mmol/L (96-108); Globulin 3.6 gm/dL (2.2-3.7); Glomerular Filtration Rate 88; Glucose 153 mg/dL (70-105)
--- NOTE | 2021-10-07 12:57 | Discharge Summary ---
Discharge Provider Provider Patient information: Note initiated : 10/07/21 at 12:55 pm Service Date, if different from initiated Date: [] Patient: Suzanna Garza 71 y/o F admitted on 10/03/21 for weakness. Chief Complaint: [] Date of admission: 10/03/21 21:25 Discharge date: 10/07/21 Primary care physician: Davis Pickard Attending physician on admission: Brett Day Consults: 10/03/21 19:07 Consult to Physician [CONS] Stat Comment: Consulting Provider: Brett Day Reason For Exam: Physician to Consult Attending physician on discharge: Hussain Greenfield Discharge Meds Discharge Medications Home Medications simvastatin 10 mg tablet 10 mg PO HS 12/03/18 [History Confirmed 10/04/21 Last Taken 10/02/21] metformin 500 mg tablet 1,000 mg PO QDAY tab 09/20/21 [History Confirmed 10/04/21 Last Taken 10/03/21] cholecalciferol (vitamin D3) 25 mcg (1,000 unit) capsule (Vitamin D3) 25 mcg PO QDAY 09/26/21 [History Confirmed 10/04/21 Last Taken 10/02/21] furosemide 20 mg tablet 20 mg PO QDAY 09/26/21 [History Confirmed 10/04/21 Last Taken 10/03/21] ibuprofen 200 mg capsule 600 mg PO Q6H PRN 09/26/21 [History Confirmed 10/04/21 Last Taken 10/03/21] lithium carbonate 300 mg capsule 300 mg PO BID 09/26/21 [History Confirmed 10/04/21 Last Taken 10/03/21] melatonin 10 mg tablet 10 mg PO HS 09/26/21 [History Confirmed 10/04/21 Last Taken 10/02/21] metoprolol succinate 25 mg tablet,extended release 24 hr 25 mg PO QDAY 09/26/21 [History Confirmed 10/04/21 Last Taken 10/02/21] multivitamin 1 tab PO QDAY 09/26/21 [History Confirmed 10/04/21 Last Taken 10/02/21] potassium chloride 10 mEq tablet,extended release 10 meq PO QDAY 09/26/21 [History Confirmed 10/04/21 Last Taken 10/03/21] clopidogrel 75 mg tablet 75 mg PO HS 10/04/21 [History Confirmed 10/04/21 Last Taken Unknown] carbidopa 25 mg-levodopa 100 mg tablet 1 tab PO QHS 30 Days #30 tab 10/07/21 [Rx Last Taken Unknown] hydrocodone 10 mg-acetaminophen 325 mg tablet 1 - 2 tab PO Q4-6HP PRN #20 tab 10/07/21 [Rx Last Taken Unknown] COURSE Hospital Course Hospital course: Ms. Garza is a 71 year old F Who presents the ED with generalized weakness some somnolence and dyskinesia. She has a history of dyskinesia but it was worse today. She was discharged yesterday after a right hip replacement. Per her she seemed to be doing all right yesterday did have some dyskinesia in the evening and was feeling okay when she went to bed. However when she woke up she was much weaker and restless as she had some disorientation and more dyskinesia. Per she has taken her medications. Of note looking at old charts she does have history of restless leg syndrome which I believe is the reason she is on Sinemet. Dyskinesia probably from her Sinemet. She is on antipsychotic but is Seroquel with lowest probability of causing dyskinesia. 10/04 Patient pulled pulled IV catheter out earlier this morning. No other overnight events. Patient ambulated in room with nursing this morning. Has a little bit of disorientation as far as year and president. brain imaging pending. Urinalysis and chest x-ray unremarkable. She did have a fever yesterday evening none since. 10/05 Patient sitting in chair eating breakfast. Ambulate team to bed with walker. Patient states she had poor sleep ever since surgery. Still a little bit disoriented to time and president but answers little more quickly today seems a bit more clear otherwise. 10/06 Held Seroquel and gabapentin yesterday. Patient says she slept well and feeling a lot better today. [place] level within normal limits. Vitamin B12 quite low, vitamin D supplementation and pending methylmalonic acid and homocystine. 10/07: Reached clinical stability. Accepted by and being discharged to SNF. Discharge diagnosis: Encephalopathy; acute delirium Time Spent with Patient Time attestation: Total time spent providing and/or coordinating discharge services: Time spent: Less than 30 minutes EXAM Constitutional Vitals: Temp Pulse Resp BP Pulse Ox 36.7 C 90 20 138/78 98 10/07/21 12:00 10/07/21 12:00 10/07/21 12:00 10/07/21 12:00 10/07/21 12:00 General appearance: cooperative and no acute distress Head Head exam: Present atraumatic and normocephalic Eye Eye exam: Present EOMI and PERRL ENT ENT exam: Present mucous membranes moist, normal exam and normal external ear exam Neck Neck exam: Present normal inspection; Absent lymphadenopathy, tenderness or thyromegaly Respiratory Respiratory exam: Absent accessory muscle use, respiratory distress or wheezes Cardiovascular Cardiovascular exam: Present normal rate and rhythm; Absent JVD GI/Abdominal GI/Abdominal exam: Present normal bowel sounds and soft; Absent organomegaly or tenderness Extremities Exam Extremities exam: Present full ROM, normal capillary refill and normal inspection; Absent tenderness Neurological Exam Neurological exam: Present alert and CN II-XII intact; Absent motor sensory deficit Additional comments: Awake and mentally more clear still a little bit slow in answering questions but alert and oriented x4 Psychiatric Psychiatric exam: Present normal affect and normal mood; Absent anxious or depressed Skin Skin exam: Present dry and intact Discharge Data Data Completed and Pending Labs on day of discharge: Labs from last 24 hours 10/07/21 10/07/21 10/06/21 06:11 06:10 07:35 WBC 9.8 RBC 3.97 Hgb 12.0 Hct 38.0 MCV 95.7 MCH 30.2 MCHC 31.6 RDW 12.9 Plt Count 345 MPV 11.5 H Neut % (Auto) 66.8 Lymph % (Auto) 22.6 [place] % (Auto) 6.9 Eos % (Auto) 3.1 Baso % (Auto) 0.6 Lymph # (Auto) 2.21 [place] # (Auto) 0.67 Eos # (Auto) 0.30 Baso # (Auto) 0.06 Absolute Neutrophils 6.52 Sodium 138 Potassium 4.0 Chloride 105 Carbon Dioxide 22 Anion Gap 11.0 BUN 15 Creatinine 0.7 GFR Calculation 88 Glucose 153 H Calcium 9.2 Total Bilirubin 0.5 AST 27 ALT 13 Alkaline Phosphatase 80 Total Protein 7.3 Albumin 3.7 Globulin 3.6 Albumin/Globulin Ratio 1.0 Homocysteine Cardiovas 10.3 Preliminary micro results at discharge 10/03/21 22:25 Blood Culture - Preliminary Blood 10/03/21 22:17 Blood Culture - Preliminary Blood Discharge Plan Patient/Caregiver Discharge Instructions Activity: increase activity as tolerated Diet: Regular Diet Prescriptions: New carbidopa-levodopa 25-100 mg Tablet 1 tab PO QHS 30 Days Qty: 30 0RF Continued metformin 500 mg tablet 1,000 mg PO QDAY 0RF simvastatin 10 MG tablet 10 mg PO HS 0RF multivitamin Tablet 1 tab PO QDAY 0RF ibuprofen 200 mg Capsule 600 mg PO Q6H PRN (Reason: Pain) 0RF potassium chloride 10 mEq Tablet Extended Release 10 meq PO QDAY 0RF furosemide 20 mg Tablet 20 mg PO QDAY 0RF metoprolol succinate 25 mg Tablet Extended Release 24 Hr 25 mg PO QDAY 0RF cholecalciferol (vitamin D3) [Vitamin D3] 25 mcg (1,000 unit) Capsule 25 mcg PO QDAY 0RF melatonin 10 mg Tablet 10 mg PO HS 0RF lithium carbonate 300 mg Capsule 300 mg PO BID 0RF clopidogrel 75 MG tablet 75 mg PO HS 0RF hydrocodone-acetaminophen 10-325 mg tablet 1 - 2 tab PO Q4-6HP PRN (Reason: pain) Qty: 20 0RF Discontinued carbidopa-levodopa 25-100 mg Tablet 2 tab PO QHS 0RF quetiapine 25 mg tablet 75 mg PO HS 0RF Label Comments: also one tablet at night gabapentin 600 mg tablet 1,200 mg PO BID 0RF Label Comments: then takes 2 more tabs PRN at HS Follow Up Plan Follow up with: Davis Pickard MD [Primary Care Provider] - Patient Disposition: Xfer SNF Prognosis: Fair Rehab Potential: Good I certify that the patient requires SNF services: Yes Overall status at discharge: patient is back to baseline Discharge Orders: Discharge Order (Routine); Ordered 10/07/21 Ordered By: Hussain CHRISTENSEN VTE Deep Vein Thrombosis/Pulmonary Embolism Present on Admission: No
[2021-10-10 20:02] LABS: Methylmalonic Acid 106 nmol/L (87-318)
== END 2021-10-07 14:00 | DRG 72 ==
LOC: ED 16:00 → MEDSUR 21:25
PROVIDERS: ADMIT Internal Medicine; ATTEND Internal Medicine